=== PATIENT | female | born 1985 | race Two or more races ===

== ENCOUNTER 2022-12-30 12:29 | Emergency (ER) | payer BC, SELFPAY ==
[2022-12-30 13:19] VITALS: BP 118/73; PULSE 67; RESP 16; TEMP 36.3; O2SAT 100; BMI 36.6
--- NOTE | 2022-12-30 16:31 | ED.BACK ---
HPI - Back Pain/Injury General Time Seen by Provider: 16:31 Date Seen: 12/30/22 Chief Complaint: Back Injury/Pain Stated Complaint: Right flank pain Time Seen by Provider: 12/30/22 16:21 Source: patient and RN notes reviewed Mode of arrival: ambulatory Limitations: no limitations History of Present Illness HPI Narrative: This 37-year-old female is coming in with new right-sided back pain and low back pain for about a week. She states there is no inciting event or trauma. She believes she had a lumbar fusion about a year ago, was having pain in the left side and in the left leg at that time. Now she started to have pain that goes into the right buttock, pain will go down into the upper right leg, she will feel both of her feet go numb at times. She states it hurts in her right buttock and low back to sit, hurts to walk. She denies any fevers or chills. Again she cannot remember any trauma or anything that aggravated this. She states it just came out of nowhere. She has tried Tylenol, icy Hot. She states she tries to stay away from ibuprofen as she has a history of NSAID induced ulcers. Her surgeon has a lumbar CT ordered for later this week, states they will not give her any medicines until they have the CT scan. She is coming in here because the pain is becoming worse and not something that she can tolerate. I was able to see the order that was placed, a CT lumbar spine was what was ordered. She has no bowel or bladder dysfunction, has had no incontinence. MD elicited complaint: back pain Related Data Home Medications Medication Instructions Recorded Confirmed bupropion HCl 75 mg tablet 75 mg PO TID 12/30/22 12/30/22 trazodone 50 mg tablet 25 mg PO QHS PRN 12/30/22 12/30/22 Previous Rx's Medication Instructions Recorded cyclobenzaprine 10 mg tablet 10 mg PO TID PRN muscle spasm #15 12/30/22 tabs prednisone 20 mg tablet 20 mg PO BID #10 tabs 12/30/22 Allergies Allergy/AdvReac Type Severity Reaction Status Date / Time Sulfa (Sulfonamide Allergy Severe Rash Verified 12/30/22 13:18 Antibiotics) Review of Systems Narrative: As per HPI. PFSH PFSH Social History Smoking Status: Former smoker How often do you have a drink containing alcohol: never AUDIT-C Alcohol total score: 0 Non-prescribed substance use: denies use Exam Const: Vital Signs, click to edit/add: Vital Signs - 24 hr 12/30/22 13:19 Temperature 97.3 F L Pulse Rate [Pulse Oximeter] 67 Respiratory Rate 16 Blood Pressure [Ri ght Upper Arm] 118/73 Pulse Oximetry 100 Oxygen Delivery Me thod Room Air Nancy is a 37-year-old female standing in the exam room 1 when I go in. Her gait is normal, can toe walk, heel walk, no evidence of any muscular limitations on examination of her lower extremities. She has a midline scar in her lumbar spine, well-healed, no midline tenderness. She does complain of right sciatic notch tenderness when I palpate. Has normal light touch sensation, no lower extremity edema. She has decreased range of motion as far as flexion rotation in her low back due to pain. Documenting provider has reviewed patient's vital signs: yes Course Course ED Course: Will order the lumbar CT, have a disc made for her to take to her specialist. Will give her 30 mg IM Toradol, reviewed that this and said may help her and it is not going to cause ulcer issues. She in I can further discuss pain management and treatment once we have her imaging results back. Reevaluation(s) Time of Reevaluation #1: 18:44 Reevaluation #1: Nancy is seen after her CT has been read. Radiology department is still making a disc for her to take to her surgeon. There is nothing acutely that requires any emergent intervention, overall the CT looks stable. She can take this to her surgeon and they can further evaluate. At this time would recommend course of steroids, will send in a muscle relaxant. As far as pain management I would have her stand Tylenol. Have reviewed with her that I did do not typically use narcotics for back pain, especially when her CT is not showing any overall concerning changes per the radiologist. She can talk to her spine surgeon tomorrow and see if they have any further input, really does need to get this disc to them. Vital Signs Vital signs: Initial Vital Signs Temperature 97.3 F L 12/30/22 13:19 Temperature Source Temporal Artery Scan 12/30/22 13:19 Pulse Rate 67 12/30/22 13:19 Pulse Rhythm Regular 12/30/22 13:19 Pulse Strength 3+ Normal 12/30/22 13:19 Respiratory Rate 16 12/30/22 13:19 Blood Pressure 118/73 12/30/22 13:19 Blood Pressure Mean 88 12/30/22 13:19 Blood Pressure Position Sitting 12/30/22 13:19 Pulse Oximetry 100 12/30/22 13:19 Oxygen Delivery Method Room Air 12/30/22 13:19 Vital Signs Temperature 97.3 F L 12/30/22 13:19 Pulse Rate 67 12/30/22 13:19 Respiratory Rate 16 12/30/22 13:19 Blood Pressure 118/73 12/30/22 13:19 Pulse Oximetry 100 12/30/22 13:19 Oxygen Delivery Method Room Air 12/30/22 13:19 Temperature 97.3 F L 12/30/22 13:19 Pulse Rate 67 12/30/22 13:19 Respiratory Rate 16 12/30/22 13:19 Blood Pressure 118/73 12/30/22 13:19 Pulse Oximetry 100 12/30/22 13:19 Oxygen Delivery Method Room Air 12/30/22 13:19 MDM - Back Pain/Injury Imaging Data CT lumbar spine: Attestation: I have reviewed the pertinent imaging results. Radiologist's impression: Patient: NANCY VALERO Facility:?[facility] Patient ID:?[id number] Site Patient ID:?[id number]. Site :?[id number] Study:?CT Spine Lumbar -12/30/2022 4:56:48 PM Ordering Physician:?Cholo Menjivar Final Report: INDICATION: Low back pain. TECHNIQUE: CT of the lumbar spine without contrast. Coronal and sagittal reformats are included. COMPARISON: None. FINDINGS: Five lumbar type vertebral bodies, with the last fully formed disc space referred to as L5-S1. Postsurgical changes of L5-S1 discectomy with interbody spacer placement. Partial incorporation of bone graft material with the adjacent endplates. An anterior reinforcing plate and screw fixation device without evidence of loosening. Postsurgical changes of L5-S1 dorsal lateral instrumented/bone graft fusion, with no evidence of hardware loosening. The bone graft is not incorporated with the posterior elements completely at this time. No acute fractures or other acute osseous abnormalities. Postop changes posterior paraspinal soft tissues. No retroperitoneal or paraspinal soft tissue mass. Findings at individual levels as follows: Lower thoracic levels, L1-2, L2-3, L3-4: No spinal canal or neural foraminal stenosis. L4-5: Mild disc bulge. No spinal canal or neural foraminal stenosis. L5-S1: Postop changes. No high-grade spinal canal/neural foraminal stenosis SI joints and Sacrum: Bilateral SI joint arthrosis. No sacral abnormalities. IMPRESSION: 1. Postsurgical changes of L5-S1 interbody/dorsal lateral fusion with no complications. Bone graft along the posterior elements is not completely incorporated at this time. 2. No acute fractures or other acute osseous abnormalities. 3. No CT visualized high grade spinal canal/neural foraminal stenosis. Please note that all CT scans at this facility use dose modulation, iterative reconstruction, and/or weight-based dosing when appropriate to reduce radiation dose to as low as reasonably achievable. Dictated by Alfonso Loya MD @ 12/30/2022 5:40:25 PM (Electronic Signature) Critical Care Time Critical Care Time Critical Care Time: No Discharge Plan Discharge Clinical Impression: Acute lumbar back pain Patient Disposition: Home, Self-Care Condition: Stable Instructions: Acute Low Back Pain (ED) Additional Instructions: Start prednisone, take with food. Can continue with Tylenol 1000 mg 3 times a day. Will write for muscle relaxant, do not recommend driving or operating machinery while on this as it can be sedating. Need to get the disc that has the CT of your lumbar spine to your spinal surgeon FITO. Further management to be guided by their recommendations. Activity Level: Activity as Tolerated Prescriptions: New prednisone 20 mg tablet 20 mg PO BID Qty: 10 0RF cyclobenzaprine 10 mg tablet 10 mg PO TID PRN (Reason: muscle spasm) Qty: 15 0RF No Action bupropion HCl 75 mg tablet 75 mg PO TID Rx Instructions: administer 6 hours apart trazodone 50 mg tablet 25 mg PO QHS PRN Follow Up/Referrals: Provider,Not a Local [Primary Care Provider] - Stand Alone Forms: MyHealth Info Instructions
--- NOTE | 2022-12-30 16:37 | CRLHL7_ITS ---
For Patients: As a result of the Cures Act, medical imaging exams and procedure reports are released immediately into your electronic medical record. You may view this report before your referring provider. If you have questions, please contact your health care provider. INDICATION: Low back pain. TECHNIQUE: CT of the lumbar spine without contrast. Coronal and sagittal reformats are included. COMPARISON: None. FINDINGS: Five lumbar type vertebral bodies, with the last fully formed disc space referred to as L5-S1. Postsurgical changes of L5-S1 discectomy with interbody spacer placement. Partial incorporation of bone graft material with the adjacent endplates. An anterior reinforcing plate and screw fixation device without evidence of loosening. Postsurgical changes of L5-S1 dorsal lateral instrumented/bone graft fusion, with no evidence of hardware loosening. The bone graft is not incorporated with the posterior elements completely at this time. No acute fractures or other acute osseous abnormalities. Postop changes posterior paraspinal soft tissues. No retroperitoneal or paraspinal soft tissue mass. Findings at individual levels as follows: Lower thoracic levels, L1-2, L2-3, L3-4: No spinal canal or neural foraminal stenosis. L4-5: Mild disc bulge. No spinal canal or neural foraminal stenosis. L5-S1: Postop changes. No high-grade spinal canal/neural foraminal stenosis SI joints and Sacrum: Bilateral SI joint arthrosis. No sacral abnormalities. IMPRESSION: 1. Postsurgical changes of L5-S1 interbody/dorsal lateral fusion with no complications. Bone graft along the posterior elements is not completely incorporated at this time. 2. No acute fractures or other acute osseous abnormalities. 3. No CT visualized high grade spinal canal/neural foraminal stenosis. Please note that all CT scans at this facility use dose modulation, iterative reconstruction, and/or weight-based dosing when appropriate to reduce radiation dose to as low as reasonably achievable. Dictated by Alfonso Loya MD @ 12/30/2022 5:40:25 PM (Electronically Signed)
[2022-12-30] MEDS: KETOROLAC 30 MG/ML inj IM (16:56)
== END 2022-12-30 18:58 | disposition home or self-care (01) ==
PROVIDERS: Emergency Provider Family Medicine
DX: M54.50 Low back pain, unspecified (principal)
CPT/HCPCS: 72131; 96372; 99283; 99284; J1885

== ENCOUNTER 2023-01-19 14:05 | Outpatient (CLI) | payer BC, SELFPAY ==
--- NOTE | 2023-01-19 14:45 | CRLHL7_ITS ---
For Patients: As a result of the Cures Act, medical imaging exams and procedure reports are released immediately into your electronic medical record. You may view this report before your referring provider. If you have questions, please contact your health care provider. Indication: Arthrodesis status. Technique: Multisequence multiplanar MRI of the lumbar spine without contrast. Comparison: Correlated with CT lumbar spine dated 12/30/2022. Findings: Operative changes of anterior and posterior hardware fusion at L5-S1 with intervertebral disc spacer placement. Normal alignment. Vertebral body heights are maintained. Bone marrow signal intensity is within normal limits.The conus medullaris terminates normally at the L1 level. The cauda equina nerve roots appear within normal limits. The paraspinal soft tissues are unremarkable. Evaluation of the individual levels demonstrates: T12-L1 through L3-L4: No significant spinal canal or neural foraminal stenosis L4-L5: Right paracentral disc extrusion with approximately 14 mm caudal subligamentous migration. Probable abutment of the exiting right L5 nerve root in the lateral recess. No significant neural foraminal stenosis. L5-S1: Postsurgical changes. No significant spinal canal or neural foraminal stenosis. Impression: 1. Operative changes of anterior and posterior hardware fusion at L5-S1 with interbody disc spacer placement. 2. At L4-5, right paracentral disc extrusion with approximately 14 mm caudal subligamentous migration and probable abutment of the exiting right L5 nerve root in the lateral recess. Dictated by Jose J Be MD @ 01/19/2023 4:47:37 PM (Electronically Signed)
== END 2023-01-19 14:06 | disposition home or self-care (01) ==
LOC: MRI 14:08
PROVIDERS: Visit Provider Specialist
DX: Z98.1 Arthrodesis status (principal); M51.26 Other intervertebral disc displacement, lumbar region
CPT/HCPCS: 72148

== ENCOUNTER 2023-08-07 14:43 | Outpatient (CLI) | payer BC, SELFPAY ==
--- NOTE | 2023-08-07 15:00 | CRLHL7_ITS ---
For Patients: As a result of the Cures Act, medical imaging exams and procedure reports are released immediately into your electronic medical record. You may view this report before your referring provider. If you have questions, please contact your health care provider. INDICATION: Low back pain. COMPARISON: 01/19/2023. Technique Sagittal T1, T2, and STIR sequences. Axial T1 and T2 weighted sequences. FINDINGS: Normal vertebral body alignment. No fractures. No vertebral body loss of height. No spondylolisthesis. No ligamentous injury. No suspicious osseous lesions. Normal conus terminates at L1. Stable postop changes diskectomy interbody fusion L5-S1 with posterior fusion hardware. T12-L1 L1-2: No spinal canal or neural foraminal narrowing. L2-3: No spinal canal or neural foraminal narrowing. L3-4: No spinal canal or neural foraminal narrowing. L4-5: Disc degeneration and posterior disc bulge. Flattening of ventral thecal sac and mild narrowing of the spinal canal. No neural foraminal narrowing. L5-S1: Postoperative changes. No narrowing of spinal canal. No impingement of the traversing S1 nerve roots. No neural foraminal narrowing. Normal visualized SI joints. IMPRESSION: 1. Normal alignment. No fractures. 2. Stable postoperative changes diskectomy interbody fusion L5-S1 3. At L4-5, mild narrowing of the spinal canal 4. No spinal canal or neural foraminal narrowing at the remaining levels Dictated by Christiano Be MD @ 08/08/2023 8:42:02 AM (Electronically Signed)
== END 2023-08-07 14:44 | disposition home or self-care (01) ==
PROVIDERS: Visit Provider Specialist
DX: M54.50 Low back pain, unspecified (principal); M51.26 Other intervertebral disc displacement, lumbar region
CPT/HCPCS: 72148

== ENCOUNTER 2024-03-04 19:20 | Emergency (ER) | payer BC, SELFPAY ==
[2024-03-04 19:28] VITALS: BP 108/78; PULSE 81; TEMP 36.6; O2SAT 100; BMI 36.6
--- NOTE | 2024-03-04 19:51 | ED.SKABFB ---
HPI - Skin/Abscess/Foreign Bdy General Date Seen: 03/04/24 Chief complaint: Skin/Abscess/Foreign Body Stated complaint: pimple under rt arm Time Seen by Provider: 03/04/24 19:27 Source: patient Mode of arrival: ambulatory Limitations: no limitations History of Present Illness HPI narrative: Patient is a 38-year-old female presenting to the emergency department for concern of an abscess underneath the right axillary region. She 1st noticed it this morning. States she has had a small pimple like this before and her forearm and leos before and it turned out to be MRSA. She states it started small like this initially both times so she want to get ahead of it if it does require antibiotics. Has not had any associated fevers, chills, fatigue, nausea. States she otherwise feels fine. States it is painful when she pushes or rubs on the area. Related Data Home Medications ?Medication ?Instructions ?Recorded ?Confirmed gabapentin 300 mg capsule 300 mg PO 3XD 09/08/23 09/08/23 meloxicam 15 mg tablet 15 mg PO DAILY 09/08/23 09/08/23 tramadol 50 mg tablet mg PO 03/04/24 Allergies Allergy/AdvReac Type Severity Reaction Status Date / Time Sulfa (Sulfonamide Allergy Severe Rash Verified 03/04/24 19:36 Antibiotics) Review of Systems Narrative: Pertinent systems reviewed and were negative unless stated in HPI PFSH PFSH Social History Smoking Status: Former smoker How often do you have a drink containing alcohol: never AUDIT-C Alcohol total score: 0 Non-prescribed substance use: denies use Exam Narrative: Exam Narrative: Const: Well-nourished, Well-developed, in mild distress Eyes: PERRL, no conjunctival injection, and symmetrical lids HENT: Atraumatic external nose and ears. Moist mucous membranes. MSK:Extremities w/o deformity, Normal Active ROM Skin: Warm, Dry. No rashes or lesions. Pimple about 1 or 2 mm in diameter with no purulent drainage and flat in the right axillary region Neuro: Normal Muscle tone, No focal neurological deficits. Psych: Awake, Alert, & Oriented x3. Appropriate mood and affect. Const: Vital Signs, click to edit/add: Vital Signs - 24 hr 03/04/24 19:28 Temperature 97.9 F Pulse Rate [Pulse Oximeter] 81 Blood Pressure [Ri ght Upper Arm] 108/78 Pulse Oximetry 100 Oxygen Delivery Me thod Room Air Course Vital Signs Vital signs: Initial Vital Signs Temperature 97.9 F 03/04/24 19:28 Temperature Source Temporal Artery Scan 03/04/24 19:28 Pulse Rate 81 03/04/24 19:28 Blood Pressure 108/78 03/04/24 19:28 Blood Pressure Mean 88 03/04/24 19:28 Blood Pressure Position Sitting 03/04/24 19:28 Pulse Oximetry 100 03/04/24 19:28 Oxygen Delivery Method Room Air 03/04/24 19:28 Vital Signs Temperature 97.9 F 03/04/24 19:28 Pulse Rate 81 03/04/24 19:28 Blood Pressure 108/78 03/04/24 19:28 Pulse Oximetry 100 03/04/24 19:28 Oxygen Delivery Method Room Air 03/04/24 19:28 Temperature 97.9 F 03/04/24 19:28 Pulse Rate 81 03/04/24 19:28 Blood Pressure 108/78 03/04/24 19:28 Pulse Oximetry 100 03/04/24 19:28 Oxygen Delivery Method Room Air 03/04/24 19:28 MDM - Skin/Abscess/Foreign Bdy MDM Narrative Medical decision making narrative: Patient is a 38-year-old female presenting for concern of right axillary abscess. Does not feel fluctuant and overall the area of concern is flat and flush with the scan. I did do a bedside ultrasound that did not show any deep abscess or drainable area. It appears to be a simple pimple at this time. Considering that I do not believe is necessary to start her an antibiotics. She is agreeable to this plan Discharge Plan Discharge Clinical Impression: Skin pimple Patient Disposition: Home, Self-Care Condition: Stable Instructions: Abscess (ED) Additional Instructions: If you do start to develop worsening symptoms or if the pimple gets larger return for re-evaluation. Prescriptions: No Action gabapentin 300 mg capsule 300 mg PO 3XD meloxicam 15 mg tablet 15 mg PO DAILY tramadol 50 mg tablet PO Follow Up/Referrals: Provider,Not a Local [Primary Care Provider] - Stand Alone Forms: MyHealth Info Instructions
== END 2024-03-04 20:14 | disposition home or self-care (01) ==
LOC: ED 19:59
PROVIDERS: Emergency Provider Student in an Organized Health Care Education/Training Program
DX: N63.31 Unspecified lump in axillary tail of the right breast (principal)
CPT/HCPCS: 99282

== ENCOUNTER 2024-03-21 07:29 | Emergency (ER) | payer BC, SELFPAY ==
--- OUTSIDE RECORDS SUMMARY | 2024-03-21 07:31 | XMS_ITS | Continuity of Care Document ---
Author Name [facility]IN [email or web address] Address Unknown Organization Unknown Address Unknown Procedures FILTER APPLIED:Only known Procedures with Onset Date within the last 5 years Procedure Date Procedure Provider Additional Inform ation Status MRI LUMBAR SPINE W/O DYE (35928) Completed EMERGENCY DEPT VISIT MOD MDM (91812) Completed CT LUMBAR SPINE W/O DYE (36440) Completed THER/PROPH/DIAG INJ SC/IM (30761) Completed Encounters FILTER APPLIED:Only known Encounters with Admission Date within the last 5 years Encounter Location Admission Discharge Billing Code Biology Laboratory Assistant Ronnell keith [facility]
--- OUTSIDE RECORDS SUMMARY | 2024-03-21 07:31 | XMS_ITS | Clinical Summary ---
Author Organization [facility] Address [place], [place] [address] Care Team Providers Care Group Home Worker Name Role Phone Lio Franklin DO Primary Care Provider [phone] Allergies Active Allergy Reactions Criticality Noted Date Comments Sulfa (Sulfonamide Antibiotics) Rash 04/10 Medications acetaminophen (TYLENOL EXTRA STRGTH) 500 mg tabletIndicatio ns:Muscle pain, lumbar,Chronic left shoulder pain Take 1,000 mg by mouth every 6 hours if needed. Max acetaminophen dose: 4000mg in 24 hrs. 0 1 Active hydrOXYzine HCL (ATARAX) 25 mg tabletIndicatio ns:Palpitations Take 1 Tablet (25 mg) by mouth every 6 hours if needed for Anxiety. 25 Tablet 4 Active gabapentin (NEURONTIN) 300 mg capsule 4 Active meloxicam 15 mg tabletIndicatio ns:Ulnar neuropathy of both upper extremities Take 1 Tablet (15 mg) by mouth once daily. 30 Tablet 4 Active Additional Information Patient not taking.Reported on 03/14/2024 oxyCODONE-aceta minophen (PERCOCET) 5-325 mg per tabletIndicatio ns:Strain of right shoulder, initial encounter Take 1 Tablet by mouth every 6 hours if needed for Pain. Max acetaminophen dose: 4000mg in 24 hrs. 10 Tablet 4 Active traMADoL (ULTRAM) 50 mg tabletIndicatio ns:Subacromial impingement of right shoulder,Subacr omial bursitis of right shoulder joint Take 1 Tablet (50 mg) by mouth at bedtime. 10 Tablet 4 Active amitriptyline (ELAVIL) 25 mg tabletIndicatio ns:Sleep disorder Take 1 Tablet (25 mg) by mouth at bedtime if needed for Sleep. 90 Tablet 3 4 Active FLUoxetine (PROZAC) 20 mg capsuleIndicati ons:Mood disorder (HC) Take 1 Capsule (20 mg) by mouth once daily in the morning. 90 Capsule 3 4 Active fluconazole (DIFLUCAN) 100 mg tabletIndicatio ns:Yeast vaginitis Take 1 Tablet (100 mg) by mouth once daily. 1 Tablet 4 Active Hospital, Clinic, or Other Facility Administered Medication Ordered Dose Route Frequency Start Date End Date Status triamcinolone acetonide (KENALOG) injection 40 mgIndications:Subacromial impingement of right shoulder 40 mg IArtic ONE TIME 03/14/2024 03/14/2024 Ended Active Problems Problem Noted Date Diagnosed Date Subacromial impingement of right shoulder 2023 Subacromial bursitis of right shoulder joint Degenerative disc disease, lumbar 02/07/2022 Overview (02/14/2022): S/p lumbar interbody fusion L5-S1 with Dr. Tapia at [facility] (02/2022) Hemorrhoids, internal 04/18/2021 Overview (04/18/2021): 7 o'clock position. Controlled substance agreement signed 01/12/2020 Overview (01/12/2020): Reviewed and resigned at [facility] 01/12/2020 Ulnar neuropathy of left upper extremity 019 Herniated nucleus pulposus, L5-S1 02/22/2018 Overview (02/14/2022): S/p lumbar interbody fusion L5-S1 with Dr. Tapia at [facility] (02/2022) Sacroiliac joint pain 01/14/2018 Nonintractable migraine 05/06/2017 Muscle pain, lumbar 02/09/2017 Overview (05/06/2017): Trial completed (from [facility]): cyclobenzaprine, meloxicam, [place], methocarbamol, oxaprozin, tarmadol, Seen by Pain clinic in [place] before (no GERBER obtained yet). Mention of previous back steroid injections in records from [place]. - Seen by Red Campos MD ([facility]; 01/22/2016): Summary of MRI report of lumbar spine dated 11/07/15 shows at L5-S1, a 3-4 mm posterior central disc protrusion, possibly extrusion with mild indentation along the ventral aspect of the thecal sac and to a lesser extent upon the S1 nerve root. At that time, a L5-S1 lumbar epidural steroid injection was recommended. - Seen by Gume Funez MD ([facility]; 12/06/2015): Recommended to continue with nonoperative treatment and pain management. 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 07/2015 Cold knife cone biopsy Colposcopy in 2017. 05/2016 She had the hysterectomy May 2016 in [place] for cervical cancer, recalls CIN3. 06/2017 NIL/HPV Negative 02/2020 NIL 10/2021 NIL/HPV Negative 05/2023 NIL/HPV Negative Provider Plan: Pap and HPV due 05/2026. Continue HPV-based testing @ 3 year intervals for x 25 years. MRSA infection 03/09/2016 Depression Overview (05/06/2017): Trials: duloxetine 60mg (02/2016), Citalopram 40mg (06/2015), fluoxetine (d/c 06/2015), Resolved Problems Problem Noted Date Diagnosed Date Resolved Date Calculus of gallbladder with out cholecystitis without obstruction 03/30/2018 09/13/2018 Overview (03/30/2018): Noted 02/19/18 ([facility]). Many small stones that fill the gallbladder noted. Helicobacter positive gastritis 03/17/2018 05/10/2018 Overview (03/17/2018): 03-08-18 EGD. [facility]. Treated the H pylori. Celiac labs ordered for follow up. Costochondritis 06/02/2017 03/30/2018 Sacroiliac joint pain 02/09/20172017 Encounters Date Type Department Care Team Description 03/18/2024 Travel 03/14/2024 1:00 PM WASHROOM CLEANER Office Visit [facility] [address] [facility] [address] [place] [address] Babak Mendoza MD Follow Up (f/u right shoulder pain) 03/14/2024 Travel 03/13/2024 Travel 02/21/2024 Travel 12/31/2023 4:10 PM CDT Office Visit [facility] [address] [place] [address] Lio Franklin, DO Multiple Problems 12/31/2023 Travel 12/31/2023 Orders Only [facility] [address] [place] [address] Lio Franklin, DO <No scans attached> from Last 3 Months Immunizations Name Administration Dates Next Due Influenza, IIV4 02/06/2023,03/29/2018,02/05/2017 Tdap 03/29/2018 Family History Medical History Relation Name Comments No Known Problems Father Other Mother Colon Problems requiring colonoscopies Cancer Sister Diabetes Sister Other Sister Colon Problems requiring colonoscopies Cancer-breast No Family History Crohn's disease No Family History Ulcerative colitis No Family History Relation Name Status Comments Father Alive Mother Alive Sister Social History Tobacco Use Types Packs/Day Years Used Date Smoking Tobacco: Former Cigarettes 0.3 20.2 2 000 - 05/11/2019 Smokeless Tobacco: Never Tobacco Cessation:Counseling Given: Yes Comments:1 pack lasts a week or two Alcohol Use Standard Drinks/Week Comments Not Currently 0 (1 standard drink = 0.6 oz pur e alcohol) [facility] Utilities Answer Date Recorded Do you have trouble paying f or utilities (for example, heat, electricity, water, phone)? Yes 11/09/2023 PHQ-2 Answer Date Recorded PHQ-2 TOTAL SCORE 4 08/15/2022 Social Connections Answer Date Recorded Do you often feel lonely or isolated from those around you? 0 11/09/2023 Financial Resource Strain Answer Date R ecorded Difficulty of Paying Living Expenses 3 11/09/2023 Difficulty of Paying Living Expenses Not on file 11/09/2023 Food Insecurity Answer Date Recorded Do you worry your food will run out before you are able to buy more? 1 11/09/2023 Transportation Needs Answer Date Record ed Does lack of transportation keep you from medica l appointments? 1 11/09/2023 Does lack of transportation keep you from work, meetings or getting things that you need? 1 11/09/2023 Housing Stability Answer Date Recorded What is your housing situation today? 1 11/09/2023 Comments No Sex and Gender Information Value Date Recorded Sex Assigned at Not on file Legal Sex Female 8:36 AM WASHROOM CLEANER Gender Identity Not on file Sexual Orientation Not on file Obstetrics History Last Filed Vital Signs Vital Sign Reading Time Taken Comments Blood Pressure 107/67 12/31/2023 4:54 PM CDT Pulse 80 12/31/2023 4:54 PM CDT Temperature 37 C (98.6 F) 11/10/2023 9:09 AM CDT Respiratory Rate 20 02/10/2022 7:50 AM WASHROOM CLEANER Oxygen Saturation 100% 12/31/2023 4:54 PM CDT Inhaled Oxygen Concentration - - Weight 95.2 kg (209 lb 12.8 oz) 11/10/2023 9:09 AM CDT Height 156.2 cm (5' 1.5) 02/06/2023 11 :36 AM WASHROOM CLEANER Body Mass Index 39 02/06/2023 11:36 AM WASHROOM CLEANER Plan of Treatment Upcoming Encounters Date Type Department Care Team (Late st Contact Info) Description 03/31/2024 3:45 PM WASHROOM CLEANER Office Visit [facility] [address] [place] [address] Lio Franklin DO [address] [place] [address] Health Maintenance Due Date Last Done Comments Depression screening for age 12+ 08/16/2023 08/15/2022, 09/19/2021, 02/10/2020, Additional history exists COVID-19 vaccine series (2023- season) 2023 Influenza for age 9-49 11/08/2023 3, 03/29/2018, 02/05/2017 BMI (ht and wt on same day) for age 18+ 02/07/2024 02/06/2023, 12/02/2022, 09/24/2022, Additional history exists Pap test for age 21-65 05/12/2026 4, 05/13/2023, 10/10/2021, Additional history exists Tetanus booster 03/29/2028 03/29/2018 Tdap Completed 03/29/2018 HIV for age 15-65 Completed 10/10/2021, 02/08/2020 Hepatitis C screening for age 18-79 Completed 10/10/2021 Pneumococcal series for age 6-49 Aged Out No longer eligible based on patient's age to complete this topic Medical Devices Implanted Type Area Ring Barker Operator Device Identifier Shelf Expiration Date Model / Serial / Lot Set Screw Lmbr Ant 5.5mm Solera Break Off - [id number] Implanted:Qty: 4 on 02/07/2022 by Hal Tapia MD at [facility] N/A: Spine Medtronic Spine/Ortho [id number] / / Benjamín Lmbr 45x5.5mm Solera 5.5/6 [facility] Titnm - [id number] Implanted:Qty: 2 on 02/07/2022 by Hal Tapia MD at [facility] N/A: Spine Medtronic Spine/Ortho [id number] / / Screw Lmbr Post 6.5x40mm Solera 5.5/6 Va [facility] - [id number] Implanted:Qty: 2 on 02/07/2022 by Hal Tapia MD at [facility] N/A: Spine Medtronic Spine/Ortho [id number] / / Screw Lmbr Post 6.5x45mm Solera 5.5/6 Va Cocr - [id number] Implanted:Qty: 2 on 02/07/2022 by Hal Tapia MD at [facility] N/A: Spine Medtronic Spine/Ortho [id number] / / Screw Lmbr 5.5x25mm Endo Skeleton Tas Bone Alif Stand Alone - [id number] Implanted:Qty: 3 on 02/07/2022 by Hal Tapia MD at [facility] N/A: Spine Medtronic Spine/Ortho [id number] / / Jeremiah Spacer Tas 7dg Std 12mm Implanted:Qty: 1 on 02/07/2022 by Hal Tapia MD at [facility] N/A: Spine 01/14/2026 [id number] / / [id number] Description:JEREMIAH SPACER TAS 7DG STD 12MM [id number] one Matrix 6cc Capron Dbf Putty Dbm Implanted:Qty: 1 on 02/07/2022 by Hal Tapia MD at [facility] Explanted:at [facility] (Quantity not on file) N/A: Spine Medtronic Spine/Ortho 12/31/2023 [id number] / [id number] / Bone 1-4mm 30cc Medtronic Chips Canclls Freeze Dried - [id number] Implanted:Qty: 1 on 02/07/2022 by Hal Tapia MD at [facility] Explanted:at [facility] (Quantity not on file) N/A: Spine Medtronic Spine/Ortho 12/17/2025 [id number] / [id number] / Bone 1-4mm 30cc Medtronic Chips Canclls Freeze Dried - [id number] Implanted:Qty: 1 on 02/07/2022 by Hal Tapia MD at [facility] Explanted:at [facility] (Quantity not on file) N/A: Spine Medtronic Spine/Ortho 12/16/2025 [id number] / [id number] / Procedures Procedure Name Priority Date/Time Associated Diagnosis Comments TRICHOMONAS, SREEDHAR, AND BACTERIAL VAGINOSIS BY JES Routine 12/31/2023 5:08 PM CDT Vaginal discharge HPV HIGH RISK Routine 05/13/2023 8:50 AM WASHROOM CLEANER Screening for cervical cancer ANTI HIV 1/2 Routine 10/10/2021 12:29 PM CDT Screening examination for STD (sexually transmitted disease) ANTI HCV Routine 10/10/2021 12:29 PM CDT Screening examination for STD (sexually transmitted disease) from Last 3 Months or Most Recently Relevant to Health Maintenance Results * (ABNORMAL) TRICHOMONAS, SREEDHAR, AND BACTERIAL VAGINOSIS BY JES (12/31/2023 5:08 PM CDT) SREEDHAR SPECIES Positive(A) Negative 01/01/20 2:59 AM CDT [facility] SREEDHAR GLABRATA Negative Negative 01/01/2024 2:59 AM CDT [facility] TRICHOMONAS VVA Negative Negative 2:59 AM CDT [facility] BACTERIAL VAGINOSIS Negative Negative 01/01/2024 2:59 AM CDT [facility] Other VAGINAL SWAB / Unknown Non-Blood / Unknown 12/31/2023 5:08 PM CDT 12/31/2023 5:08 PM CDT us Lio Franklin DO MICROBIOLOGY Final Result [facility] [address] [place] [address], * HPV HIGH RISK (05/13/2023 8:50 AM WASHROOM CLEANER) TYPE 16 Negative Negative 05/16/2023 2:54 PM WASHROOM CLEANER [facility] TYPE 18 Negative Negative 05/16/2023 2:54 PM WASHROOM CLEANER [facility] OTHER HIGH RISK TYPES Negative Negative 05/16/2023 2:54 PM WASHROOM CLEANER [facility] Other (Cervical) Non-Blood / Unknown 05/13/2023 8:50 AM WASHROOM CLEANER 05/13/2023 4:26 PM WASHROOM CLEANER Narrative [facility] - 05/16/2023 2:54 PM WASHROOM CLEANER HPV types 16, 18, 31, 33, 35, 39, 45, 51, 52, 56, 58, 59, 66 and 68 DNA were undetectable or below the pre-set threshold. Methodology: Ivonne Monty 4800 HPV Test Gale Chamberlain DO MICROBIOLOGY Final Resu lt Performing Organization Address City/[facility]/ZIP Co de Phone Number [facility] [address] [place] [address], * ANTI HCV (10/10/2021 12:29 PM CDT) Pathologist [facility] HEPATITIS C ANTIBODY Non-React carolina Non-React carolina 10/12/2021 4:21 AM CDT [facility] Comment:Antibodies to HCV no t detected; does not exclude the possibility of exposure to HCV. Blood BLOOD SPECIMEN / Unknown Venipuncture / Unknown 10/10/2021 12:29 PM CDT 10/10/2021 12:29 PM CDT Zach Benitez MD SEND OUTS Final Result Performing Organization Address [facility] Co de Phone Number [facility] [address] [place] [address], * ANTI HIV 1/2 (10/10/2021 12:29 PM CDT) Pathologist [facility] HIV-1/HIV-2 ANTIBODY Non-Reacti ve Non-Reacti ve 10/12/2021 4:19 AM CDT [facility] Comment:HIV-1 p24 and HIV-1/ HIV-2 Ab not detected. Blood BLOOD SPECIMEN / Unknown Venipuncture / Unknown 10/10/2021 12:29 PM CDT 10/10/2021 12:29 PM CDT Zach Benitez MD SEND OUTS Final Result Performing Organization Address City/[facility] Co de Phone Number [facility] [address] [place] [address], from Last 3 Months or Most Recently Relevant to Health Maintenance Additional Health Concerns Infection Onset Date Last Indicated MRSA Clearance Comment:Infection Control Note: Hx of MRSA, surveillance criteria met, no need for further testing or isolation precautions. Do not delete or resolve the infection flag. 06/07/2018 06/07/2018 [facility] Advance Directives * Full Code (Latest Code Status on File) Date Activated Date Inactivated Comments 02/07/2022 8:47 PM 02/10/2022 1:46 PM Question Answer Comments Code Status Discussion: Reviewed Preferences * Full Code Date Activated Date Inactivated Comments 06/07/2018 6:05 AM 06/07/2018 1:19 PM Care Teams Group Home Worker Relationship Specialty Start Date End Date Lio [place] [address] PCP - General Family Practice 09/04/23
[2024-03-21 07:32] VITALS: BP 110/75; PULSE 91; RESP 16; TEMP 35.9; O2SAT 96; BMI 37.8
[2024-03-21 08:23] LABS: PCR FLU A Negative PCR FLU A (Negative); PCR FLU B Negative PCR FLU B (Negative); PCR RSV Negative PCR RSV (Negative); SARS PCR* Negative SARS-CoV-2 (Negative)
--- NOTE | 2024-03-21 08:23 | ED.NAVMDI ---
HPI - Nausea/Vomiting/Diarrhea General Date Seen: 03/21/24 Chief complaint: Diarrhea Stated complaint: Diarrhea Time Seen by Provider: 03/21/24 08:03 Source: patient Mode of arrival: ambulatory Limitations: no limitations History of Present Illness HPI Narrative: Patient is a 38-year-old female presenting to the emergency department for flu-like symptoms. She states starting yesterday morning's been having headache, body aches, vomiting diarrhea. States the headache is a dull ache in her forehead with some photophobia. States her vision this morning seemed blurry when she woke up but has been normal since than. Has had headaches like this before when she was . Also states her low back hurts. Pain does not radiate down her legs. Denies saddle anesthesia. Denies urinary retention, incontinence, bowel incontinence. States she has had constant diarrhea since she woke up yesterday morning. Describes as watery with no blood in it. She has also not noticed any hematemesis. States she has lost track of how much diarrhea and vomiting she has done. Is not aware for new 1 was been sick around her. He has had chills but has not had any objective fevers at home. Has felt fatigued. Denies weakness, numbness, chest pain, shortness of breath, abdominal pain. Related Data Home Medications ?Medication ?Instructions ?Recorded ?Confirmed gabapentin 300 mg capsule 300 mg PO 3XD 09/08/23 09/08/23 meloxicam 15 mg tablet 15 mg PO DAILY 09/08/23 09/08/23 tramadol 50 mg tablet mg PO 03/04/24 amitriptyline 10 mg tablet 10 mg PO QPM 03/21/24 03/21/24 Previous Rx's ?Medication ?Instructions ?Recorded ondansetron 4 mg disintegrating 4 mg PO Q6H #20 tabs 03/21/24 tablet Allergies Allergy/AdvReac Type Severity Reaction Status Date / Time Sulfa (Sulfonamide Allergy Severe Rash Verified 03/04/24 19:36 Antibiotics) Review of Systems Status of ROS: Reports: 10 or more systems reviewed and unremarkable except as noted in History and below PFSH PFS Social History Smoking Status: Former smoker How often do you have a drink containing alcohol: never AUDIT-C Alcohol total score: 0 Non-prescribed substance use: denies use service: No Exam Narrative: Exam Narrative: Const: Well-nourished, Well-developed, in mild distress Eyes: PERRL, no conjunctival injection, and symmetrical lids HENT: Atraumatic external nose and ears. Moist mucous membranes. Neck: Symmetric, trachea midline, No thyromegaly. CVS: RRR, No murmurs or gallops. Peripheral pulses 2+ and equal in all extremities RESP: Unlabored respiratory effort. Clear to auscultation bilaterally. GI: Nontender/Nondistended, No rebound or guarding. MSK:Extremities w/o deformity, Normal Active ROM Skin: Warm, Dry. No rashes or lesions. Neuro: Normal Muscle tone, No focal neurological deficits. Psych: Awake, Alert, & Oriented x3. Appropriate mood and affect. Const: Vital Signs, click to edit/add: Vital Signs - 24 hr 03/21/24 07:32 Temperature 96.6 F L Pulse Rate [Pulse Oximeter] 91 Respiratory Rate 16 Blood Pressure [Ri ght Upper Arm] 110/75 Pulse Oximetry 96 Oxygen Delivery Me thod Room Air Course Vital Signs Vital signs: Initial Vital Signs Temperature 96.6 F L 03/21/24 07:32 Temperature Source Temporal Artery Scan 03/21/24 07:32 Pulse Rate 91 03/21/24 07:32 Respiratory Rate 16 03/21/24 07:32 Blood Pressure 110/75 03/21/24 07:32 Blood Pressure Mean 86 03/21/24 07:32 Blood Pressure Position Sitting 03/21/24 07:32 Pulse Oximetry 96 03/21/24 07:32 Oxygen Delivery Method Room Air 03/21/24 07:32 Vital Signs Temperature 96.6 F L 03/21/24 07:32 Pulse Rate 91 03/21/24 07:32 Respiratory Rate 16 03/21/24 07:32 Blood Pressure 110/75 03/21/24 07:32 Pulse Oximetry 96 03/21/24 07:32 Oxygen Delivery Method Room Air 03/21/24 07:32 Temperature 96.6 F L 03/21/24 07:32 Pulse Rate 91 03/21/24 07:32 Respiratory Rate 16 03/21/24 07:32 Blood Pressure 110/75 03/21/24 07:32 Pulse Oximetry 96 03/21/24 07:32 Oxygen Delivery Method Room Air 03/21/24 07:32 Medications Administered Medications: Discontinued Medications Generic Name Dose Route Start Last Admin Trade Name Isael PRN Reason Stop Dose Admin Diphenhydramine HCl 25 mg 03/21/24 08:22 03/21/24 08:41 Diphenhydramine 50 Mg/Ml Inj IVP 03/21/24 08:23 25 mg ONCE ONE Administration Sodium Chloride 1,000 mls @ 1,000 mls/hr 03/21/24 08:30 03/21/24 09:56 0.9 % Sodium Chloride 1000 Ml IV 03/21/24 09:29 Infused .Q1H CHON Infusion Metoclopramide HCl 10 mg 03/21/24 08:22 03/21/24 08:41 Metoclopramide Hcl 5 Mg/Ml Inj IVP 03/21/24 08:23 10 mg ONCE ONE Administration MDM - Nausea/Vomiting/Diarrhea MDM Narrative Medical decision making narrative: patient is a 38-year-old female presenting to emergency department for in sounds like flu-like symptoms. Is not having any abdominal pain so do not believe abdominal imaging is necessary. Is not having any chest pain or shortness of breath So ACS, pneumonia or other intrathoracic abnormalities are unlikely. She is having headache but describes as more of a dull ache in similar to headache she has had in the past. Meningitis or intracranial abnormality seems unlikely. Will do a CBC and BMP to look for other abnormality such as electrolyte changes due to her likely dehydration. Viral swabs ordered. Will give her a migraine cocktail including Reglan, Benadryl, L of fluids. At this time I believe her headache is likely from dehydration as she has not been eating or drinking much lately Along with the diarrhea and vomiting. Lab work shows no concerning findings. She is feeling much better after medication. Symptoms are all likely from dehydration and some viral syndrome that we will not test for. I believe she is safe for discharge. She is agreeable to this plan. Will prescribe her Zofran. Lab Data Labs: Lab Results 03/21/24 03/21/24 Range/Units 07:40 08:48 WBC 5.42 (4.50-11.00) K/uL RBC 4.81 (4.00-5.20) m/uL Hgb 13.9 (12.0-16.0) gm/dL Hct 41.2 (33.0-51.0) % MCV 86 (80-100) fL MCH 29 (26-34) pg MCHC 34 (32-36) gm/dL RDW Coeff of Valarie 12.7 (11.5-15.5) % Plt Count 301 (140-440) K/uL Neut % (Auto) 71.4 (42.0-72.0) % Lymph % (Auto) 11.4 L (20-44) % Atlantic % (Auto) 15.3 H (0.0-11.0) % Eos % (Auto) 1.5 (0.0-7.0) % Baso % (Auto) 0.2 (0.0-3.0) % Neut # (Auto) 3.87 (1.7-7.0) K/uL Lymph # (Auto) 0.60 L (0.90-2.90) K/uL Atlantic # (Auto) 0.80 (0.00-0.90) K/UL Eos # (Auto) 0.08 (0.00-0.50) K/uL Baso # (Auto) 0.01 (0.00-0.30) K/uL Abs Immat Gran (auto) 0.01 (0.00-0.30) K/uL Imm/Tot Granulo (auto) 0.2 % Sodium 134 L (135-149) mmol/L Potassium 3.3 L (3.6-5.1) mmol/L Chloride 102 (96-114) mmol/L Carbon Dioxide 24 (20-32) mmol/L Anion Gap 8 (7-15) mEq/L BUN 8 (5-24) mg/dL Creatinine 0.5 (0.5-1.5) mg/dL Estimated Creat Clear 113.99 Estimated GFR 122 ml/min Glucose 101 (60-115) mg/dL Calcium 8.8 (8.4-10.6) mg/dL SARS-CoV-2 (PCR) Negative SARS-CoV-2 (Negative) Influenza Type A (PCR) Negative PCR FLU A (Negative) Influenza Type B (PCR) Negative PCR FLU B (Negative) RSV (PCR) Negative PCR RSV (Negative) Discharge Plan Discharge Clinical Impression: Acute viral syndrome Patient Disposition: Home, Self-Care Condition: Stable Instructions: Viral Syndrome (ED) Additional Instructions: Take the Zofran as needed for nausea. Return to emergency department for new or worsening symptoms. Make sure to stay well hydrated. Prescriptions: New ondansetron 4 mg tablet,disintegrating 4 mg PO Q6H Qty: 20 0RF No Action gabapentin 300 mg capsule 300 mg PO 3XD meloxicam 15 mg tablet 15 mg PO DAILY tramadol 50 mg tablet PO amitriptyline 10 mg tablet 10 mg PO QPM Follow Up/Referrals: Provider,Not a Local [Primary Care Provider] - Stand Alone Forms: [employer] Info Instructions
[2024-03-21] MEDS: METOCLOPRAMIDE HCL 5 MG/ML INJ 10 MG IVP (08:41)
[2024-03-21] MEDS: diphenhydrAMINE 50 MG/ML inj 25 MG IVP (08:41)
[2024-03-21] MEDS: 0.9 % SODIUM CHLORIDE 1000 ml 1,000 ML IV (08:42)
[2024-03-21 09:00] LABS: Basophils Absolute Auto 0.01 K/uL (0.00-0.30); Basophils Percent Auto 0.2 % (0.0-3.0); Eosinophils Absolute Auto 0.08 K/uL (0.00-0.50); Eosinophils Percent Auto 1.5 % (0.0-7.0); Hematocrit 41.2 % (33.0-51.0); Hemoglobin* 13.9 gm/dL (12.0-16.0); Immature Granulocytes Abs Auto 0.01 K/uL (0.00-0.30); Immature Granulocytes Pct Auto 0.2 %; Lymphocytes Percent Auto 11.4 % (20-44); Mean Corpuscular HGB Conc 34 gm/dL (32-36); Mean Corpuscular Hemoglobin 29 pg (26-34); Mean Corpuscular Volume 86 fL (80-100); Monocytes Percent Auto 15.3 % (0.0-11.0); Neutrophils Absolute Auto 3.87 K/uL (1.7-7.0); Neutrophils Percent Auto 71.4 % (42.0-72.0); Platelet Count* 301 K/uL (140-440); RDW Coefficient of Variation % 12.7 % (11.5-15.5); Red Blood Count 4.81 m/uL (4.00-5.20); White Blood Count* 5.42 K/uL (4.50-11.00)
[2024-03-21 09:09] LABS: Chloride* 102 mmol/L (96-114)
[2024-03-21 09:10] LABS: Potassium* 3.3 mmol/L (3.6-5.1); Sodium* 134 mmol/L (135-149)
[2024-03-21 09:12] LABS: Creatinine* 0.5 mg/dL (0.5-1.5); Est. Creatinine Clearance* 113.99; Estimated Glomerular Filt Rate 122 ml/min
[2024-03-21 09:13] LABS: Anion Gap 8 mEq/L (7-15); Blood Urea Nitrogen* 8 mg/dL (5-24); Calcium* 8.8 mg/dL (8.4-10.6); Carbon Dioxide* 24 mmol/L (20-32); Glucose* 101 mg/dL (60-115); Slide Review Reflex No
== END 2024-03-21 10:39 | disposition home or self-care (01) ==
PROVIDERS: Emergency Provider Student in an Organized Health Care Education/Training Program
DX: B34.9 Viral infection, unspecified (principal)
CPT/HCPCS: 36415; 80048; 85025; 87631; 96374; 96375; 99283; 99284; J1200; J2765; J7030

== ENCOUNTER 2025-01-31 19:11 | Emergency (ER) | payer SELFPAY ==
--- OUTSIDE RECORDS SUMMARY | 2025-01-31 19:14 | XMS_ITS | Data Portability ---
Author Organization [place] [facility], [facility] Address [address] [place] [address] Assessment Encounter Date Assessment Date Assessment LastModified by Organization Details LastModified Time 04/27/2024 04/27/2024 39 yo F with 1. Mixed urge predominant incontinence with satisfactory emptying 2. Urinary tract infectious disease UA dipstick not concerning for infection cath PVR 50cc Plan: - Behavioral therapies were discussed including timed voiding, double voiding, limiting bladder irritants and limiting fluids in the evenings - Prescribed vaginal estrogen cream (daily for 2 weeks, then 2-3 times weekly) - Referral to Pelvic floor physical therapy Counseled on: - Fluid management: limit evening fluid intake after 6 PM - UTI prevention strategies including increased water intake, D-Mannose, cranberry supplements - Vaginal estrogen use and safety - Follow up in 3 months Not available 05/03/2024 16:40:37 Plan of Treatment Reminders Order Date Submit Date Provider Last Modified By Organization Details Last Modified Time Details Appointments None recorded. Lab None recorded. Referral pelvic floor therapy referral - Please contact patient to schedule 2024 025 SVETLANA Martin Scheduling, [address] [place], [address], 09:01:10 Procedures None recorded. Surgeries None recorded. Imaging None recorded. Medication Orders estradiol 0.01% (0.1 mg/gram) vaginal cream 2024 025 [id number], [address] [place], [place], [phone], 5 12:24:47 Patient TargetsNo targets recorded. Patient Instructions Encounter Date Encounter Id Patient Instructions Last Modified By Organization Details Last Modified Time 04/27/2024 [id number] Patient Summary - Overactive Bladder - Frequent urination (every 45 minutes) - Urge incontinence with activity - Starting pelvic floor physical therapy - Recurrent UTIs - Two episodes in past 3 months - Starting vaginal estrogen - Counseled on prevention strategies Jiménez Takeaways - Start vaginal estrogen cream daily for 2 weeks, then 2-3 times weekly - Schedule pelvic floor physical therapy - Limit fluid intake after 6 PM Next Steps - Schedule pelvic floor physical therapy at recommended facility - Follow up appointment in 3 months - Return sooner if symptoms worsen Not available 04/27/2024 12:24:46 Reason for Referral Pelvic Floor Therapy Referra l for Overactive urinary bladder Please contact patient to schedule Referring Physician: Lluvia Samson, Urology, Encounter Date: 04/27/2024 Problems Name Problem SNOMED Code Status Onset Date Resolution Date Notes Provider Name and Address Organization Details Recorded Time Urgent desire to urinate 50862086 Active 2024 Khushbu hyatt [facility] 5 10:31:40 Incontinence 02618642 Active 2024 Khushbu hyatt [facility] 5 10:31:40 Mixed urinary incontinence 108242701 Active 2024 Khushbu hyatt [facility] 5 10:31:40 Urinary incontinence 788863033 Active 2024 Khushbu hyatt [facility] 5 10:31:40 Increased frequency of urination 425930589 Active 2024 Khushbu hyatt [facility] 5 10:31:40 Overactive urinary bladder 787800003 Active 2024 Khushbu hyatt [facility] 5 10:31:40 Recurrent urinary tract infection 395500869 Active 2024 LLUVIA SAMSON MD [address] [place] [address], [phone] [place] [address] Urology 12:19:26 Problem Notes None recorded. Procedures Surgical History Date Name Laterality Status Provider Name and Address Organization Details Recorded Time 07/28/19 25 Bladder Scan cancelled Tisha Muhammad [facility] 07/18/2024 15:00:35 04/27/19 25 Bladder Scan completed Sarah Kenny [facility] 04/27/2024 11:44:05 04/27/19 25 In and Out Catheterization- female completed LLUVIA SAMSON MD [address] [facility],[address], [place], [address], [facility] 04/27/2024 14:10:21 03/09/19 17 hysterectomy completed Khushbu Dunn [facility] 04/26/2024 10:30:02 Imaging Results None recorded. Procedure Notes None recorded. Medical Equipment None Reported. Allergies Allergen ID Allergen Name Allergen Category Reaction Reaction Severity Criticality Documentation Date Start Date Code Code System Note Provider Name and Address Organization Details Recorded Time 506398 Substance with sulfonami de structure and antibacte rial mechanism of action (substanc e) medicatio n Not available Not available Not available 04/27/2024 [id number] SNOMED Sarah Cox null, [facility] 11:34:35 Medications Name Sig Start Date Stop Date Status Note LastModified by Organization Details LastModified Time fluconazole 100 mg tablet TAKE 1 TABLET BY MOUTH EVERY DAY 04/27 completed Not Available Not Available Not Available tizanidine 2 mg tablet active Not Available Not Available Not Available aspirin 81 mg tablet,akilah yed release TAKE 1 TABLET BY MOUTH TWO TIMES DAILY WITH MEALS FOR 14 DAYS active Not Available Not Available No t Available tramadol 50 mg tablet active Not Available Not Available No t Available oxycodone-a cetaminophe n 5 mg-325 mg tablet active Not Available Not Available No t Available amitriptyli ne 25 mg tablet active Not Available Not Available Not Available gabapentin 300 mg capsule active Not Available Not Available Not Available estradiol 0.01% (0.1 mg/gram) vaginal cream INSERT 0.5 GRAM VAGINALLY 3 TIMES A WEEK active Not Available Not Available No t Available methylpredn isolone 4 mg tablets in a dose pack FOLLOW PACKAGE DIRECTION S active Not Available Not Available No t Available ketoconazol e 2 % topical cream APPLY TOPICALLY TO THE AFFECTED AREA TWICE DAILY active Not Available Not Available No t Available ondansetron 4 mg disintegrat ing tablet DISSOLVE 1 TABLET ON THE TONGUE EVERY 6 HOURS active Not Available Not Available No t Available nitrofurant oin monohydrate /macrocryst als 100 mg capsule active Not Available Not Available Not Available Vitals Date Recorded Body height Body mass index (BMI) Body weight Provider Name and Address Organization Details Last Updated DateTime 04/27/2024 157.48 cm 40.2 kg/m2 97937.32 g Sarah Cox [facility] 04/27/2024 11:33:50 Social History Question Answer Notes LastModified by [employer] Details LastModified Time Tobacco Smoking Status Never Smoker YURIDIA [facility] 04/27/2024 11:39:07 What Is Your Level Of Caffeine Consumption? Occasional [email or web address] Information not available 04/27/2024 What Was The Date Of Your Most Recent Tobacco Screening? 04/27/2024 [email or web address] Information not available 04/27/2024 Sex: Unknown Functional Status Question Answer Note LastModified by [employer] Details LastModified Time What is your level of alcohol consumption? Occasional [email or web address] Information not available 04/27/2024 Mental Status None recorded. Family History Relationship Description Onset Age of this Age Resolved Age Notes LastModified by Organization Details LastModified Time Sister History of malignant neoplasm of liver [email or web address] Not available 11:38:05 Mother History of partial pancreatecto my [email or web address] Not available 11:38:45 Medical History No medical history recorded. Gynecological HistoryNo gynecological history recorded. Obstetrics History GPAL:G 0 P 0 0 0 0 Immunizations Vaccine Type Date Status Note Provider Nam e and Address Organization Details Recorded Time Influenza, split virus, quadrivalent, PF 02/06/2023 completed YURIDIA [facility] 04/27/2024 11:25:58 Past Encounters Encounter ID Performer Location Encounter Start Date Encounter Closed Date Diagnosis/Indication Diagnosis SNOMED-CT Code Diagnosis ICD10 Code Diagnosis IMO Codes Diagnosis Note [id number] LLUVIA SAMSON MD [facility] [address] [place] [phone] 04/27/2024 11:22:42 05/05/2024 11:21:55 Recurrent urinary tract infection 684827130 N39.0 Overactive urinary bladder 399775870 N32.81 Mixed urin lasha incontinence 228425541 N39.46 Health Concerns Section Related Observation LastModified by Organization Detai ls LastModified Time None Recorded Concern Status LastModified by Organization Details LastModified Time None Recorded Advance Directives Directive None Recorded Payers Insurance Date Sequence Insurance Name Policy Number Policy Cervantes Covered Member ID Cervantes Member ID Guarantor Name 07/25/2024 1 [id number] - [place]MO) [id number] Jessie Steele [id number] Jessie Fowlero Notes Date Note Type Note Provider Name and Address Organization Details Recorded Time 04/27/2024 text/html ROS as noted in the HPI Patient is a 39 year old female with presents for evaluation of nocturia and incontinence. Referred by: Dr. Vaughn from [facility] Records reviewed and in summary: Seen on 03/31/[address] Franklin for limb swelling. On elavil 25mg for insomnia.No UTI data. History:- Reports urinary incontinence with jumping, coughing, laughing- Also reports Urinary urgency with leakage when unable to reach bathroom in time- Frequency: every 45 minutes- Nocturia: twice per night with sleep medication- Daily urge incontinence episodes, especially when bathroom occupied or while driving- No nocturnal enuresis- No pads used- Recent UTIs: two episodes in past 3 months, treated with antibiotics- No hematuria- Reports pelvic pain with menses- Irregular bowel movements every 1-2 days- Dyspareunia occasionally- Post-coital urination LUTSF: every 45 minutesU: yes oftenN: 2xNE: noUI: yes dailyPads: noUTI: yes, a couple months agoPain: no Past Medical History:- Cervical cancer- Kidney stones- Depression- Sleep issues requiring medication Past Surgical History:- Hysterectomy (04/2016) for cervical cancer- Appendectomy- L4-S1 back surgery (04/2022) Obstetric History:- , all vaginal deliveries- Largest baby: 8 pounds- Last menstrual period: 04/2008 Social History:- Sexually active- Caffeine: two cups coffee in morning- Reports drinking water throughout da UA normalPVR 48 cc LLUVIA SAMSON MD [address] [facility] [address] [facility],[address], [place], [address], [facility] 05/03/2024 16:40:47 OBGyn Episode No OBEpisode recorded.
--- OUTSIDE RECORDS SUMMARY | 2025-01-31 19:14 | XMS_ITS | Clinical Summary ---
Author Organization [facility] Address [address] [place] [address] Care Team Providers Care Melt Supervisor Name Role Phone Thuy Franklin DO Primary Care Provider [phone] Allergies Active Allergy Reactions Criticality Noted Date Comments Sulfa (Sulfonamide Antibiotics) Rash 04/10 Medications acetaminophen (TYLENOL EXTRA STRGTH) 500 mg tabletIndications :Muscle pain, lumbar,Chronic left shoulder pain Take 1,000 mg by mouth every 6 hours if needed. Max acetaminophen dose: 4000mg in 24 hrs. 0 021 Active gabapentin (NEURONTIN) 300 mg capsuleIndication s:Herniated nucleus pulposus, L5-S1,Ulnar neuropathy of left upper extremity,Degener ation of intervertebral disc of lumbar region, unspecified whether pain present TAKE 1 CAPSULE(300 MG) BY MOUTH THREE TIMES DAILY 90 Capsule 025 Active Additional Information Patient not taking.Reported on 01/12/2025 hydrOXYzine HCL (ATARAX) 25 mg tabletIndications :Palpitations TAKE 1 TABLET(25 MG) BY MOUTH EVERY 6 HOURS NEEDED FOR ANXIETY 25 Tablet 025 Active amitriptyline 25 mg tabletIndications :Insomnia, idiopathic Take 1 Tablet (25 mg) by mouth at bedtime if needed for Sleep. 90 Tablet 025 Active ketoconazole 2 % creamIndications: Seborrheic dermatitis Apply topically to affected area(s) two times daily. 60 g 2 11/06/2 025 Active hydrOXYzine HCL (ATARAX) 25 mg tabletIndications :Palpitations Take 1 Tablet (25 mg) by mouth every 6 hours if needed for Anxiety. 25 Tablet 025 2024 Discontinued amitriptyline 25 mg tabletIndications :Insomnia, idiopathic TAKE 1 TABLET(25 MG) BY MOUTH AT BEDTIME NEEDED FOR SLEEP 30 Tablet 025 2024 Discontinued(R eorder (E-cancel not sent)) Active Problems Problem Noted Date Diagnosed Date Subacromial impingement of right shoulder 2023 Subacromial bursitis of right shoulder joint Degenerative disc disease, lumbar 02/07/2022 Overview (02/14/2022): S/p lumbar interbody fusion L5-S1 with Dr. Tapia at [facility] (02/2022) Hemorrhoids, internal 04/18/2021 Overview (04/18/2021): 7 o'clock position. Controlled substance agreement signed 01/12/2020 Overview (01/12/2020): Reviewed and resigned at [facility] [place] [place] 01/12/2020 Ulnar neuropathy of left upper extremity 019 Herniated nucleus pulposus, L5-S1 02/22/2018 Overview (02/14/2022): S/p lumbar interbody fusion L5-S1 with Dr. Tapia at [facility] (02/2022) Sacroiliac joint pain 01/14/2018 Nonintractable migraine 05/06/2017 Muscle pain, lumbar 02/09/2017 Overview (05/06/2017): Trial completed (from [facility]): cyclobenzaprine, meloxicam, Telferner, methocarbamol, oxaprozin, tarmadol, Seen by Pain clinic in [place] before (no GERBER obtained yet). Mention of previous back steroid injections in records from [place]. - Seen by Red Campos MD ([facility]; 01/22/2016): Summary of MRI report of lumbar spine dated 11/07/15 shows at L5-S1, a 3-4 mm posterior central disc protrusion, possibly extrusion with mild indentation along the ventral aspect of the thecal sac and to a lesser extent upon the S1 nerve root. At that time, a L5-S1 lumbar epidural steroid injection was recommended. - Seen by Gume Funez MD ([facility]; 12/06/2015): Recommended to continue with nonoperative treatment and pain management. 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 07/2015 Cold knife cone biopsy Colposcopy in 2017. 05/2016 She had the hysterectomy May 2016 in [place] for cervical cancer, recalls CIN3. 06/2017 NIL/HPV [...] obstruction 03/30/2018 09/13/2018 Overview (03/30/2018): Noted 02/19/18 ([facility]). Many small stones that fill the gallbladder noted. Helicobacter positive gastritis 03/17/2018 05/10/2018 Overview (03/17/2018): 03-08-18 EGD. [facility]. Treated the H pylori. Celiac labs ordered for follow up. Costochondritis 06/02/2017 03/30/2018 Sacroiliac joint pain 02/09/20172017 Encounters Date Type Department Care Team Description 01/12/2025 4:10 PM BRICK PAVER Office Visit [facility] [address] [place] [address] Giuseppe Elizondo MD Derm Problem (FOREHEAD IS ITCHY AND RED); Headache (X 1 WEEK) 01/11/2025 Travel 01/09/2025 Telephone [facility] [place] [address] [address] [phone] Babak Mendoza MD Letter For Work (Needs start date ) 01/05/2025 9:30 AM CDT Orders Only [address] [address] [place], [place] [facility] 01/05/[address] [address] Thuy Franklin DO Refill Request 01/04/2025 Travel 12/30/[address] [address] Thuy Franklin DO Refill Request (Hydroxyzine Hcl) 12/22/[address] [address] Thuy Franklin DO Results 12/19/2024 1:00 PM CDT Ancillary Procedure [facility] at [address] [address] 12/19/2024 Travel 12/14/2024 11:00 AM CDT Office Visit [address] [address] Thuy Franklin DO Dizziness (x6 days - feels like she has noticed some lightheadedness - feels like she had some low blood sugar/needed to eat but still feels like that it doesn't change now even if she sleeps - has been falling asleep about 12/17 - wakes up around 6am, wakes up a lot throughout the night ) 12/14/[address] [address] Shaqra, Adei, DO Refill Request (Amitriptyline) 12/14/2024 Travel 12/12/2024 Travel 12/08/2024 8:10 AM CDT Procedure Only [facility] [address] [place] [address] Que Reyes MD Procedure (USGI trigger point injection ri... 12/08/2024 Travel 12/05/2024 Travel 11/25/2024 1:30 PM CDT Office Visit [facility] [address] [place] [address] Babak Mendoza MD Surgical Followup (S/P right shoulder scope) 11/24/2024 Travel 11/14/2024 Refill [facility] [address] [place] [address] Thuy Franklin, Refill Request (Gabapentin) from Last 3 Months Immunizations Immunization Administration Dates Next Due Influenza, IIV4 02/06/2023,03/29/2018,02/05/2017 [...] Types Packs/Day Years Used Date Smoking Tobacco: Some Days Cigarettes 0.3 20.7 Started: 1999; Last attempted to quit: 05/11/2019 Smokeless Tobacco: Never Tobacco Cessation:Ready to Q uit: No; Counseling Given: Yes Alcohol Use Standard Drinks/Week Comments Yes 0 (1 standard drink = 0.6 oz pur e alcohol) occas PHQ-2 Answer Date Recorded PHQ-2 TOTAL SCORE 4 12/14/2024 Social Connections Answer Date Recorded Do you often feel lonely or isolated from those around you? 0 01/12/2025 Alcohol Use Answer Date Recorded How often do you have a drink containing alcohol ? 2 01/12/2025 How many drinks containing a lcohol do you have on a typical day when you are drinking? 0 01/12/2025 How often do you have five or more drinks on one occasion? 0 01/12/2025 Financial Resource Strain Answer Date R ecorded Difficulty of Paying Living Expenses 3 12/12/2024 Difficulty of Paying Living Expenses Not on file 12/12/2024 Food Insecurity Answer Date Recorded Do you worry your food will run out before you are able to buy more? 1 01/12/2025 Transportation Needs Answer Date Record ed Does lack of transportation keep you from medica l appointments? 1 01/12/2025 Does lack of transportation keep you from work, meetings or getting things that you need? 1 01/12/2025 Housing Stability Answer Date Recorded What is your housing situation today? 1 01/12/2025 Utilities Answer Date Recorded Do you have trouble paying f or utilities (for example, heat, electricity, water, phone)? 1 01/12/2025 Comments No Sex and Gender Information Value Date Recorded Sex Assigned at Not on file Legal Sex Female 8:36 AM BRICK PAVER Gender Identity Not on file Sexual Orientation Not on file Obstetrics History Last Filed Vital Signs Vital Sign Reading Time Taken Comments Blood Pressure 113/71 01/12/2025 4:11 PM BRICK PAVER Pulse 87 01/12/2025 4:11 PM BRICK PAVER Temperature 36.8 C (98.3 F) 12/08/2024 8:08 AM CDT Respiratory Rate 20 02/10/2022 7:50 AM BRICK PAVER Oxygen Saturation 98% 01/12/2025 4:11 PM BRICK PAVER Inhaled Oxygen Concentration - - Weight 100.7 kg (221 lb 14.4 oz) 01/12/2025 4:11 PM BRICK PAVER Height 157.5 cm (5' 2) 01/12/2025 4:11 PM BRICK PAVER Body Mass Index 40.59 01/12/2025 4:11 PM BRICK PAVER Plan of Treatment Health Maintenance Due Date Last Done Comments Hepatitis B series for 19+ ( 1 of 3 - 19+ 3-dose series) 2003 Pneumococcal series for age 6-49 (1 of 2 - PCV) 2003 HPV series for age 9-45 (1 - 3-dose SCDM series) 2011 Influenza Vaccine (#1) 2024 , 03/29/2018, 02/05/2017 Depression screening for age 12+ 12/14/2025 12/14/2024, 03/31/2024, 08/15/2022, Additional history exists BMI (ht and wt on same day) for age 18+ 01/12/2026 01/12/2025, 03/31/2024, 02/06/2023, Additional history exists Pap test for age 21-65 05/12/2026 , 05/13/2023, 10/10/2021, Additional history exists Tetanus booster 03/29/2028 03/29/2018 RSV vaccine for adults or (1 - 1-dose 75+ series) 2059 HIV for age 15-65 Completed 10/10/2021, 02/08/2020 Hepatitis C screening for ag e 18-79 Completed 10/10/2021 Medical Devices Implanted Type Area Pattern Data Operator Device Identifier Shelf Expiration Date Model / Serial / Lot Set Screw Lmbr Ant 5.5mm Solera Break Off - [id number] Implanted:Qty: 4 on 02/07/2022 by Hal Tapia MD at [facility] N/A: Spine Medtronic Spine/Ortho [id number] / / Benjamín Lmbr 45x5.5mm Solera 5.5/6 Cvd Titnm - [id number] Implanted:Qty: 2 on 02/07/2022 by Hal Tapia MD at [facility] N/A: Spine Medtronic Spine/Ortho [id number] / / Screw Lmbr Post 6.5x40mm Solera 5.5/6 Va Cocr - [id number] Implanted:Qty: 2 on 02/07/2022 by Hal Tapia MD at [facility] N/A: Spine Medtronic Spine/Ortho [id number] / / Screw Lmbr Post 6.5x45mm Solera 5.5/6 Va Cocr - [id number] Implanted:Qty: 2 on 02/07/2022 by Hal Tapia MD at [facility] N/A: Spine Medtronic Spine/Ortho [id number] / / Screw Lmbr 5.5x25mm Endo Skeleton Tas Bone Alif Stand Alone - [id number] Implanted:Qty: 3 on 02/07/2022 by Hal Tapia MD at [facility] N/A: Spine Medtronic Spine/Ortho [id number] / / Jeremiah Spacer Tas 7dg Std 12mm Implanted:Qty: 1 on 02/07/2022 by Hal Tapia MD at [facility] N/A: Spine 01/14/2026 [id number] / / [id number] Description:JEREMIAH SPACER TAS 7DG STD 12MM [id number] one Matrix 6cc Destini Dbf Putty Dbm Implanted:Qty: 1 on 02/07/2022 by Hal Tapia MD at [facility] Explanted:at [facility] (Quantity not on file) N/A: Spine Medtronic Spine/Ortho 12/31/2023 [id number] / [id number] / Bone 1-4mm 30cc Medtronic Chips Canclls Freeze Dried - [id number] Implanted:Qty: 1 on 02/07/2022 by Hla Tapia MD at [facility] Explanted:at [facility] (Quantity not on file) N/A: Spine Medtronic Spine/Ortho 12/17/2025 [id number] / [id number] / Bone 1-4mm 30cc Medtronic Chips Canclls Freeze Dried - [id number] Implanted:Qty: 1 on 02/07/2022 by Hal Tapia MD at [facility] Explanted:at [facility] (Quantity not on file) N/A: Spine Medtronic Spine/Ortho 12/16/2025 [id number] / [id number] / Procedures Procedure Name Priority Date/Time Associated Diagnosis Comments HEPATIC FUNCTION PANEL Routine 9:29 AM CDT Transaminitis ECHO TTE COMPLETE WO CONTRAST FITO 12/19/2024 1:31 PM CDT Systolic murmur Chest pain, unspecified type T4,FREE Routine 12/14/2024 11:39 AM CDT Weakness Dizziness Poor sleep CBC WITH AUTO DIFFERENTIAL Routine 12/14/2024 11:39 AM CDT Weakness Dizziness Poor sleep C-REACTIVE PROTEIN Routine 12/14/2024 11 :39 AM CDT Chest pain, unspecified type SEDIMENTATION RATE Routine 12/14/2024 11 :39 AM CDT Chest pain, unspecified type FERRITIN Routine 12/14/2024 11:39 AM CDT Weakness Dizziness Poor sleep TSH WITH REFLEX Routine 12/14/2024 11:39 AM CDT Weakness Dizziness Poor sleep COMP METABOLIC PANEL Routine 12/14/2024 11:39 AM CDT Weakness Dizziness Poor sleep CBC WITH AUTO DIFFERENTIAL Routine 12/14/2024 11:39 AM CDT Weakness Dizziness Poor sleep BEDSIDE US STUDY ARCHIVE Routine 12/08/2024 9:54 AM CDT Trapezius muscle strain, right, subsequent encounter CLOTH FINISHER THIN PREP PAP SCREEN IMAGED Routine 05/13/2023 8:50 AM BRICK PAVER Screening for cervical cancer ANTI HIV 1/2 Routine 10/10/2021 12:29 PM CDT Screening examination for STD (sexually transmitted disease) ANTI HCV Routine 10/10/2021 12:29 PM CDT Screening examination for STD (sexually transmitted disease) from Last 3 Months or Most Recently Relevant to Health Maintenance Results * HEPATIC FUNCTION PANEL (01/05/2025 9:29 AM CDT) ALBUMIN 4.6 3.6 - 5.1 g/dL 01/06/2025 5:26 AM CDT [facility] PROTEIN, TOTAL 7.4 6.1 - 8.1 g/dL 01/06/2025 5:26 AM CDT [facility] BILIRUBIN, TOTAL 0.6 0.2 - 1.2 mg/dL 01/06/2025 5:26 AM CDT [facility] BILIRUBIN, DIRECT 0.1 < OR = 0.2 mg/dL 01/06/2025 5:26 AM CDT [facility] BILIRUBIN, INDIRECT 0.5 0.2 - 1.2 mg/dL (calc) 01/06/2025 5:26 AM CDT [facility] ALKALINE PHOSPHATASE 80 31 - 125 U/L 01/06/2025 5:26 AM CDT [facility] ALT 19 6 - 29 U/L 01/06/2025 5:26 AM CDT [facility] AST 17 10 - 30 U/L 01/06/2025 5:26 AM CDT [facility] GLOBULIN 2.8 1.9 - 3.7 g/dL (calc) 01/06/2025 5:26 AM CDT [facility] ALBUMIN/GLOBULIN RATIO 1.6 1.0 - 2.5 (calc) 01/06/2025 5:26 AM CDT [facility] Blood BLOOD SPECIMEN / Unknown [facility] / Unknown 01/05/2025 9:29 AM CDT 01/05/2025 9:29 AM CDT Thuy Franklin DO CHEMISTRY Final Result [facility] [id number] [place] [address], * ECHO TTE COMPLETE WO CONTRAST (12/19/2024 1:31 PM CDT) AORTIC VALVE MEAN PG 6 mmHg EJECTION FRACTION 74 % PEAK TR VELOCITY 2.5 m/s LVEDD 5.2 cm Anatomical Region Laterality Modality Ultrasound 12/19/2024 1:03 PM CDT Narrative 12/19/2024 1:55 PM CDT ECHOCARDIOGRAM JESSIE VALERO : 1985 39 years Study Date: 12/19/2024 1:03:44 PM Gender: F BP: 113/65 mmHg Height: 155.00 cm BSA: 1.97 m Weight: 100.00 kg Tech: ZOHREH Referring MD: THUY FRANKLIN Site: [facility] Reading Location: Mobile-OP Patient Location: Outpatient. Procedure: 2D, Color Doppler and Spectral Doppler. Indication for study: Systolic murmur; Chest pain, unspecified type Cardiac Rhythm: Regular.Study quality: Fair. Imaging limitations: This study was subject to imaging limitations due to a prominent lung artifact. Final Impressions: 1. Normal left ventricular size, normal wall thickness, normal global systolic function, calculated EF of 74 %. 2. Right ventricular cavity size is normal, global systolic RV function is normal. 3. Normal left atrium size. 4. The aortic valve is normal and trileaflet, no stenosis and trivial regurgitation. 5. The mitral valve is normal, mild mitral regurgitation. 6. Tricuspid valve is normal, trace tricuspid regurgitation. 7. No pericardial effusion. Chamber Sizes and Function Normal left ventricular size, normal wall thickness, normal global systolic function, calculated EF of 74 %. No resting regional wall motion abnormality visualized. Left atrial size is normal. Right ventricular cavity size is normal, global systolic RV function is normal. The right atrium is normal. Right atrial volume index is 26 ml/m . Right atrial area is 18 cm . The pulmonary artery is not well visualized. The sinus of Valsalva is normal sized. The ascending aorta is normal sized. Valves, RV Pressures and Diastolic Function The aortic valve is normal in structure and trileaflet, no stenosis and trivial regurgitation. The mitral valve is normal in structure, mild mitral regurgitation. Normal diastolic function. The tricuspid valve is normal in structure, trace tricuspid regurgitation. The tricuspid regurgitant velocity is 2.5 m/s, the estimated right ventricular systolic pressure is 24 mmHg plus right atrial pressure. There is normal estimated pulmonary pressure by tricuspid regurgitation velocity and right atrial pressure. The pulmonic valve is not well visualized. Trace pulmonary regurgitation. Masses, Effusion, Shunts There is no pericardial effusion. The inferior vena cava is normal sized, respiratory size variation greater than 50%. No left to right shunting was detected by limited color flow Doppler interrogation of the interatrial septum. MEASUREMENTS AND CALCULATIONS 2-D Measurements and LV Function: LVID (d) 5.2 cm Planimetered EF 74 % LVID (s) 3.4 cm LV FS% (2D) 33 % IVS (d) 1.0 cm LVOT diameter 2.2 cm LVPW (d) 1.0 cm HR 84 bpm Ao Sinus 2.8 cm LA Vol index 24 ml/m2 Ao Sinus ULN 3.6 cm * RA Vol index 26 ml/m2 Asc Ao 2.8 cm RA area 18 cm Asc Ao ULN 3.6 cm * RV Basal Diam 3.8 cm LA 3.6 cm RV Mid Diam 3.1 cm * Input BSA outside of range, reported values correspond to BSA = 1.9 Diastology: Mitral Tissue Doppler E Peak 0.8 m/s e', Septum 0.10 m/s A Peak 0.8 m/s e', Lateral 0.12 m/s E/A 1.1 E/e' Average 7.47 DT 211 msec Aortic Valve: Vmax 1.6 m/s ROS (V) 2.76 cm VTI 0.33 m ROS (I) 2.73 cm LVOT V max 1.2 m/s Max PG 10 mmHg LVOT VTI 0.25 m Mean PG 6 mmHg SV 90 ml Dim Index 0.75 SV index 46 ml/m CO 7.6 l/min CI 3.8 l/min/m Mitral Valve: MVA 3.6 cm MV P 1/2 61 msec Tricuspid Valve and estimated PA pressures: TR Vmax 2.5 m/s TAPSE 3.3 cm TR maxG 24 mmHg . This study was interpreted by an [facility] accredited facility. Final Procedure Note Anny Jacobs, [facility] - 12/19/2024 ECHOCARDIOGRAM JESSIE VALERO : 1985 39 years Study Date: 12/19/2024 1:03:44 PM Gender: F BP: 113/65 mmHg Height: 155.00 cm BSA: 1.97 m Weight: 100.00 kg Tech: ZOHREH Referring MD: THUY FRANKLIN Site: [facility] Reading Location: Mobile-OP Patient Location: Outpatient. Procedure: 2D, Color Doppler and Spectral Doppler. Indication for study: Systolic murmur; Chest pain, unspecified type Cardiac Rhythm: Regular.Study quality: Fair. Imaging limitations: This study was subject to imaging limitations due toa prominent lung artifact. Final Impressions: 1. Normal left ventricular size, normal wall thickness, normal globalsystolic function, calculated EF of 74 %. 2. Right ventricular cavity size is normal, global systolic RV functionis normal. 3. Normal left atrium size. 4. The aortic valve is normal and trileaflet, no stenosis and trivialregurgitation. 5. The mitral valve is normal, mild mitral regurgitation. 6. Tricuspid valve is normal, trace tricuspid regurgitation. 7. No pericardial effusion. Chamber Sizes and Function Normal left ventricular size, normal wall thickness, normal globalsystolic function, calculated EF of 74 %. No resting regional wall motionabnormality visualized. Left atrial size is normal. Right ventricularcavity size is normal, global systolic RV function is normal. The rightatrium is normal. Right atrial volume index is 26 ml/m . Right atrialarea is 18 cm . The pulmonary artery is not well visualized. The sinus ofValsalva is normal sized. The ascending aorta is normal sized. Valves, RV Pressures and Diastolic Function The aortic valve is normal in structure and trileaflet, no stenosis andtrivial regurgitation. The mitral valve is normal in structure, mildmitral regurgitation. Normal diastolic function. The tricuspid valve isnormal in structure, trace tricuspid regurgitation. The tricuspidregurgitant velocity is 2.5 m/s, the estimated right ventricular systolicpressure is 24 mmHg plus right atrial pressure. There is normal estimatedpulmonary pressure by tricuspid regurgitation velocity and right atrialpressure. The pulmonic valve is not well visualized. Trace pulmonaryregurgitation. Masses, Effusion, Shunts There is no pericardial effusion. The inferior vena cava is normal sized,respiratory size variation greater than 50%. No left to right shunting wasdetected by limited color flow Doppler interrogation of the interatrialseptum. MEASUREMENTS AND CALCULATIONS 2-D Measurements and LV Function: LVID (d) 5.2 cm Planimetered EF 74% LVID (s) 3.4 cm LV FS% (2D) 33% IVS (d) 1.0 cm LVOT diameter2.2 cm LVPW (d) 1.0 cm HR 84bpm Ao Sinus 2.8 cm LA Vol index 24ml/m2 Ao Sinus ULN 3.6 cm * RA Vol index 26ml/m2 Asc Ao 2.8 cm RA area 18cm Asc Ao ULN 3.6 cm * RV Basal Diam3.8 cm LA 3.6 cm RV Mid Diam3.1 cm * Input BSA outside of range, reported values correspond to BSA = 1.9 Diastology: Mitral Tissue Doppler E Peak 0.8 m/s e', Septum 0.10 m/s A Peak 0.8 m/s e', Lateral 0.12 m/s E/A 1.1 E/e' Average 7.47 DT 211 msec Aortic Valve: Vmax 1.6 m/s ROS (V) 2.76 cm VTI 0.33 m ROS (I) 2.73 cm LVOT V max 1.2 m/s Max PG 10 mmHg LVOT VTI 0.25 m Mean PG 6 mmHg SV 90 ml Dim Index 0.75 SV index 46 ml/m CO 7.6 l/min CI 3.8 l/min/m Mitral Valve: MVA 3.6 cm MV P 1/2 61 msec Tricuspid Valve and estimated PA pressures: TR Vmax 2.5 m/s TAPSE 3.3 cm TR maxG 24 mmHg . This study was interpreted by an [facility] accredited facility. Final Thuy Franklin DO ECHO ORD Final Result * SEDIMENTATION RATE (12/14/2024 11:39 AM CDT) Pathologist [facility] SED RATE BY MODIFIED CODYERGREN 9 < OR = 20 mm/h 12/15/2024 4:00 AM CDT [facility] Blood BLOOD SPECIMEN / Unknown [facility] / Unknown 12/14/2024 11:39 AM CDT 12/14/2024 11:36 AM CDT Thuy Franklin DO HEMATOLOGY Final Result [facility] [address] [place] [address], [place] [phone] * CBC WITH AUTO DIFFERENTIAL (12/14/2024 11:39 AM CDT) Pathologist [facility] WHITE BLOOD CELL COUNT 8.5 3.8 - 10.8 Thousand/u L 12/15/2024 3:31 AM CDT [facility] RED BLOOD CELL COUNT 4.66 3.80 - 5.10 Million/uL 12/15/2024 3:31 AM CDT [facility] HEMOGLOBIN 13.3 11.7 - 15.5 g/dL 12/15/2024 3:31 AM CDT [facility] HEMATOCRIT 41.2 35.0 - 45.0 % 12/15/2024 3:31 AM CDT [facility] MCV 88.4 80.0 - 100.0 fL 12/15/2024 3:31 AM CDT [facility] MCH 28.5 27.0 - 33.0 pg 12/15/2024 3:31 AM CDT [facility] MCHC 32.3 32.0 - 36.0 g/dL 12/15/2024 3:31 AM CDT [facility] Comment: For adults, a slight decrease in the calculated MCHC value (in the range of 30 to 32 g/dL) is most likely not clinically significant; however, it should be interpreted with caution in correlation with other red cell parameters and the patient's clinical condition. RDW 12.5 11.0 - 15.0 % 12/15/2024 3:31 AM CDT [facility] PLATELET COUNT 382 140 - 400 Thousand/u L 12/15/2024 3:31 AM CDT [facility] MPV 10.5 7.5 - 12.5 fL 12/15/2024 3:31 AM CDT [facility] NEUTROPHILS 66.2 % 12/15/2024 3:31 AM CDT [facility] LYMPHOCYTES 25.4 % 12/15/2024 3:31 AM CDT [facility] MONOCYTES 6.4 % 12/15/2024 3:31 AM CDT [facility] EOSINOPHILS 1.2 % 12/15/2024 3:31 AM CDT [facility] BASOPHILS 0.8 % 12/15/2024 3:31 AM CDT [facility] ABSOLUTE NEUTROPHILS 5627 1500 - 7800 cells/uL 12/15/2024 3:31 AM CDT [facility] ABSOLUTE LYMPHOCYTES 2159 850 - 3900 cells/uL 12/15/2024 3:31 AM CDT [facility] ABSOLUTE MONOCYTES 544 200 - 950 cells/uL 12/15/2024 3:31 AM CDT [facility] ABSOLUTE EOSINOPHILS 102 15 - 500 cells/uL 12/15/2024 3:31 AM CDT [facility] ABSOLUTE BASOPHILS 68 0 - 200 cells/uL 12/15/2024 3:31 AM CDT [facility] Blood BLOOD SPECIMEN / Unknown [facility] / Unknown 12/14/2024 11:39 AM CDT 12/14/2024 11:36 AM CDT Dinanery Martinezqra DO HEMATOLOGY Final Result Performing Organization Address [facility]/ZIP Co de Phone Number [facility] [address] [place] [address], * (ABNORMAL) TSH WITH REFLEX (12/14/2024 11:39 AM CDT) TSH W/REFLEX TO FT4 0.39(L) mIU/L 12/15/2024 10:07 AM CDT [facility] Comment: Reference Range > or = 20 Years 0.40-4.50 Ranges First trimester 0.26-2.66 Second trimester 0.55-2.73 Third trimester 0.43-2.91 Blood BLOOD SPECIMEN / Unknown [facility] / Unknown 12/14/2024 11:39 AM CDT 12/14/2024 11:36 AM CDT Thuy Franklin DO CHEMISTRY Final Result Performing Organization Address [facility] de Phone Number [facility] [address] [address], * (ABNORMAL) C-REACTIVE PROTEIN (12/14/2024 11:39 AM CDT) C-REACTIVE PROTEIN (MG/L) 8.3(H) <8.0 mg/L 12/15/2024 11:29 AM CDT [facility] Blood BLOOD SPECIMEN / Unknown [facility] / Unknown 12/14/2024 11:39 AM CDT 12/14/2024 11:36 AM CDT Dinanery Martinezleon CHEMISTRY Final Result Performing Organization Address [facility]/ZIP Co de Phone Number [facility] [id number] [place] [address], * T4,FREE (12/14/2024 11:39 AM CDT) Pathologist [facility] T4, FREE 1.3 0.8 - 1.8 ng/dL 12/15/2024 10:07 AM CDT [facility] Blood BLOOD SPECIMEN / Unknown [facility] / Unknown 12/14/2024 11:39 AM CDT 12/14/2024 11:36 AM CDT Thuy Franklin CHEMISTRY Final Result Performing Organization Address [facility]/ZIP Co de Phone Number [facility] [address] [address], * FERRITIN (12/14/2024 11:39 AM CDT) Pathologist [facility] FERRITIN 129 16 - 154 ng/mL 12/15/2024 5:41 AM CDT [facility] Blood BLOOD SPECIMEN / Unknown [facility] / Unknown 12/14/2024 11:39 AM CDT 12/14/2024 11:36 AM CDT Thuy Martinezraffy CHEMISTRY Final Result Performing Organization Address [facility] de Phone Number [facility] [address] [address], [place] [phone] * (ABNORMAL) COMP METABOLIC PANEL (12/14/2024 11:39 AM CDT) Pathologist [facility] SODIUM 139 135 - 146 mmol/L 12/15/2024 4:59 AM CDT [facility] POTASSIUM 4.8 3.5 - 5.3 mmol/L 12/15/2024 4:59 AM CDT [facility] CHLORIDE 104 98 - 110 mmol/L 12/15/2024 4:59 AM CDT [facility] CARBON DIOXIDE 28 20 - 32 mmol/L 12/15/2024 4:59 AM CDT [facility] GLUCOSE 81 65 - 99 mg/dL 12/15/2024 4:59 AM CDT [facility] Comment: Fasting reference interval CALCIUM 9.9 8.6 - 10.2 mg/dL 12/15/2024 4:59 AM CDT [facility] CREATININE 0.57 0.50 - 0.99 mg/dL 12/15/2024 4:59 AM CDT [facility] BUN/CREATININE RATIO SEE NOTE: 6 - 22 (calc) 12/15/2024 4:59 AM CDT [facility] Comment: Not Reported: BUN and Creatinine are within reference range. EGFR 118 > OR = 60 mL/min/1. 73m2 12/15/2024 4:59 AM CDT [facility] ALBUMIN 4.6 3.6 - 5.1 g/dL 12/15/2024 4:59 AM CDT [facility] PROTEIN, TOTAL 7.3 6.1 - 8.1 g/dL 12/15/2024 4:59 AM CDT [facility] BILIRUBIN, TOTAL 0.5 0.2 - 1.2 mg/dL 12/15/2024 4:59 AM CDT [facility] ALKALINE PHOSPHATASE 89 31 - 125 U/L 12/15/2024 4:59 AM CDT [facility] ALT 124(H) 6 - 29 U/L 12/15/2024 4:59 AM CDT [facility] AST 93(H) 10 - 30 U/L 12/15/2024 4:59 AM CDT [facility] UREA NITROGEN (BUN) 8 7 - 25 mg/dL 12/15/2024 4:59 AM CDT [facility] GLOBULIN 2.7 1.9 - 3.7 g/dL (calc) 12/15/2024 4:59 AM CDT [facility] ALBUMIN/GLOBULI N RATIO 1.7 1.0 - 2.5 (calc) 12/15/2024 4:59 AM CDT [facility] Blood BLOOD SPECIMEN / Unknown [facility] / Unknown 12/14/2024 11:39 AM CDT 12/14/2024 11:36 AM CDT us Thuy Franklin DO CHEMISTRY Final Result [facility] [address] [place] [address], * BEDSIDE US STUDY ARCHIVE (12/08/2024 9:54 AM CDT) Narrative Orin Florez A - 12/08/2024 9:54 AM CDT The patient was seen for ultrasound guided injection by Dr. Que Reyes. Ultrasound was not used for diagnostic purposes, but to guide the needle placement and document the position of the injection. See patient's EPIC encounter for the detail of the procedure; see MERC[facility] for saved images of the injection. us Que Reyes MD PROCEDURE ORD Final Resu lt * CLOTH FINISHER THIN PREP PAP SCREEN IMAGED [[id number]] (05/13/2023 8:50 AM BRICK PAVER) Case Report Gynecologic Cytology Report Case: [id number] Authorizing Provider: Gale Chamberlain DO Collected: 05/13/2023 0850 Ordering Location: [facility] Received: 05/13/2023 0914 Clinic First Screen: Annalise Griggs Specimen: CLOTH FINISHER ThinPrep Vial Screening, Cervical 05/19/2023 7:18 PM CDT [facility] INTERPRETATION /RESULT NEGATIVE FOR INTRAEPITHELIAL LESION OR MALIGNANCY (NIL) (none) 05/19/2023 7:18 PM CDT [facility] at 1918 CDT SPECIMEN ADEQUACY Satisfactory for evaluation 05/19/2023 7:18 PM CDT [facility] [employer] [facility] HPV REQUEST HPV and PAP 05/19/2023 7:18 PM CDT [facility]-C ENTRAL LABORATORY Date of LMP n/a 05/19/2023 7:18 PM CDT [facility] [employer] [facility]-C ENTRAL LABORATORY Last Pap Date 10/10/21 05/19/2023 7:18 PM CDT [email or web address]AL LABORATORY Last Pap Result NIL 05/19/2023 7:18 PM CDT [facility] Abnormal Pap or [place] Bx in last 5 years No 05/19/2023 7:18 PM CDT [email or web address]AL LABORATORY Menstrual Status Hysterectomy-cervi x absent 05/19/2023 7:18 PM CDT [facility] [place] Bx Done Today No 05/19/2023 7:18 PM CDT [facility] Additional Information None given 05/19/2023 7:18 PM CDT [facility] ENTRMD [facility]ORATORY Comment: Cytology is screened at [facility] - [address], [place] [address] and [facility] - [address], [place] [address] and [facility] - [address] [place] [address] Interpreted at [facility] - [address], [place] [address] Automated Review Failed 05/19/2023 7:18 PM CDT [facility] Comment:Processing failed, m anual screening required. ThinPrep Imaging System, [employer] ANCILLARY TESTING CLOTH FINISHER HPV Ordered, Please see separate report 05/19/2023 7:18 PM CDT [facility] Note The pap test is a screening technique, not a diagnostic procedure. It is used primarily to screen for squamous cancers and precursor lesions. Published studies have shown that it is subject to both false negative and false positive results. The pap test should not be used as the sole means to diagnose or exclude pre-malignant and malignant lesions. 05/19/2023 7:18 PM CDT [facility] Other (Cervical) Non-Blood / Unknown 05/13/2023 8:50 AM BRICK PAVER 05/13/2023 9:14 AM BRICK PAVER us Gale Chamberlain DO PATHOLOGY/CYTOLOGY Final R esult [facility] [address] [place] [address], [place] * ANTI HCV (10/10/2021 12:29 PM CDT) HEPATITIS C ANTIBODY Non-React carolina Non-React carolina 10/12/2021 4:21 AM CDT [facility] TRAL LABORATORY Comment:Antibodies to HCV no t detected; does not exclude the possibility of exposure to HCV. Blood BLOOD SPECIMEN / Unknown Venipuncture / Unknown 10/10/2021 12:29 PM CDT 10/10/2021 12:29 PM CDT Zach Benitez MD SEND OUTS Final Result [facility] [address] [place] [address], * ANTI HIV 1/2 (10/10/2021 12:29 PM CDT) HIV-1/HIV-2 ANTIBODY Non-Reacti ve Non-Reacti ve 10/12/2021 4:19 AM CDT [facility] TRAL LABORATORY Comment:HIV-1 p24 and HIV-1/ HIV-2 Ab not detected. Blood BLOOD SPECIMEN / Unknown Venipuncture / Unknown 10/10/2021 12:29 PM CDT 10/10/2021 12:29 PM CDT Zach Benitez MD SEND OUTS Final Result Performing Organization Address City/[facility]/ZIP Co de Phone Number [facility] [address] [place] [address], from Last 3 Months or Most Recently Relevant to Health Maintenance Additional Health Concerns Infection Onset Date Last Indicated MRSA Clearance Comment:Infection Control Note: Hx of MRSA, surveillance criteria met, no need for further testing or isolation precautions. Do not delete or resolve the infection flag. 06/07/2018 06/07/2018 Insurance [facility] Advance Directives * Full Code (Latest Code Status on File) Date Activated Date Inactivated Comments 02/07/2022 8:47 PM 02/10/2022 1:46 PM Question Answer Comments Code Status Discussion: Reviewed Preferences * Full Code Date Activated Date Inactivated Comments 06/07/2018 6:05 AM 06/07/2018 1:19 PM Care Teams Melt Supervisor Relationship Specialty Start Date End Date Thuy Franklin [place] [address] [place] [address] PCP - General Family Practice 09/04/23
[2025-01-31 19:22] VITALS: BP 122/75; PULSE 90; RESP 20; TEMP 36.8; O2SAT 99; BMI 36.6
--- NOTE | 2025-01-31 20:27 | ED.ANIMALBIT ---
HPI - Animal Bite General Chief Complaint: Animal Bite Stated Complaint: dog bite L hand Time Seen by Provider: 01/31/25 20:11 History of Present Illness HPI narrative: This 39-year-old female comes in with a dog bite to her left hand. This occurred about an hour prior to arrival. She states that there was a gait between her dog and some unknown dog and has the 2 dogs began to escalate she attempted to separate them and got bit in her left hand. Her dogs vaccination status is up-to-date but the other dog is unknown. She comes in with small punctures in lacerations to her left middle, ring, and little fingers. Related Data Home Medications ?Medication ?Instructions ?Recorded ?Confirmed gabapentin 300 mg capsule 300 mg PO 3XD 09/08/23 09/08/23 meloxicam 15 mg tablet 15 mg PO DAILY 09/08/23 09/08/23 tramadol 50 mg tablet mg PO 03/04/24 amitriptyline 10 mg tablet 10 mg PO QPM 03/21/24 03/21/24 Previous Rx's ?Medication ?Instructions ?Recorded ondansetron 4 mg disintegrating 4 mg PO Q6H #20 tabs 03/21/24 tablet Allergies Allergy/AdvReac Type Severity Reaction Status Date / Time Sulfa (Sulfonamide Allergy Severe Rash Verified 03/04/24 19:36 Antibiotics) Review of Systems Status of ROS: Reports: 10 or more systems reviewed and unremarkable except as noted in History and below Narrative: Constitutional: No fevers, no weight gain or loss. Eyes: No discharge. No vision changes. HENT: No congestion, no sore throat, no ear pain. Cardiovascular: No chest pain, no palpitations. Respiratory: No shortness of breath, no wheezes, no cough. Gastrointestinal: No abdominal pain, no vomiting, no diarrhea. Genitourinary: No dysuria, no hematuria. Musculoskeletal: Normal range of motion. Left hand injury as described above. Skin: No rashes, no pruritis. Neurological: No dizziness, weakness, sensory change, speech change. Endo/Heme/Allergies: No bruising or bleeding. No polydipsia. Pysch: no suicidality, no anxiety, no insomnia. All other systems reviewed and are negative. [facility] Medical History (Updated 01/31/25 @ 20:34 by Johnny Song MD) DDD (degenerative disc disease), lumbar ?M51.369 - Other intervertebral disc degeneration, lumbar region without mention of lumbar back pain or lower extremity pain (ICD-10) Controlled substance agreement signed ?Z79.899 - Other petroleum terminal plant operator (current) drug therapy (ICD-10) Ulnar neuropathy of left upper extremity ?G56.22 - Lesion of ulnar nerve, left upper limb (ICD-10) Herniated nucleus pulposus Sacroiliac joint pain ?M53.3 - Sacrococcygeal disorders, not elsewhere classified (ICD-10) Nonintractable migraine ?G43.009 - Migraine without aura, not intractable, without status migrainosus (ICD-10) Depression ?F32.A - Depression, unspecified (ICD-10) DUNIA III (cervical intraepithelial neoplasia grade III) with severe dysplasia ?D06.9 - Carcinoma in situ of cervix, unspecified (ICD-10) Muscle pain, lumbar ?M79.18 - Myalgia, other site (ICD-10) Surgical History (Updated 01/31/25 @ 19:57 by Doni Escobar RN) History of hysteroscopy ?Z98.890 - Other specified postprocedural states (ICD-10) History of lumbosacral spine surgery ?Z98.890 - Other specified postprocedural states (ICD-10) History of ovarian cystectomy ?Z98.890 - Other specified postprocedural states (ICD-10) ?Z87.42 - Personal history of other diseases of the female genital tract (ICD-10) History of laparoscopic cholecystectomy ?Z90.49 - Acquired absence of other specified parts of digestive tract (ICD-10) History of laparoscopic appendectomy ?Z90.49 - Acquired absence of other specified parts of digestive tract (ICD-10) History of colposcopy ?Z98.890 - Other specified postprocedural states (ICD-10) History of abdominal hysterectomy ?Z90.710 - Acquired absence of both cervix and uterus (ICD-10) Social History Smoking Status: Former smoker Second hand tobacco smoke exposure: No How often do you have a drink containing alcohol: never AUDIT-C Alcohol total score: 0 Non-prescribed substance use: denies use service: No Exam Narrative: Exam Narrative: Constitutional: Well-developed, well-nourished, no acute distress. HEENT: Normocephalic, atraumatic. Neck: Normal range of motion. Nontender. Supple. Heart: Intact distal pulses. Lungs: No chest discomfort. No wheezes, rhonchi, or rales. Abdomen: Nontender. Back: Normal range of motion. Extremities: Normal range of motion. Left middle finger has 2 small lacerations. Left ring finger has a small puncture wound as does the left little finger. Skin: Intact. No rash. Warm. No erythema or pallor. Neurologic: No altered sensation. No weakness. Alert and oriented. Psychiatric: No suicidality. No anxiety or depression. No insomnia. Nursing notes and vitals signs are reviewed. Const: Vital Signs, click to edit/add: Vital Signs - 24 hr 01/31/25 19:22 Temperature 98.2 F Pulse Rate [Right Pulse Oximeter] 90 Respiratory Rate 20 Blood Pressure [Ri ght Upper Arm] 122/75 Pulse Oximetry 99 Oxygen Delivery Me thod Room Air Course Vital Signs Vital signs: Initial Vital Signs Temperature 98.2 F 01/31/25 19:22 Temperature Source Temporal Artery Scan 01/31/25 19:22 Pulse Rate 90 01/31/25 19:22 Respiratory Rate 20 01/31/25 19:22 Blood Pressure 122/75 01/31/25 19:22 Blood Pressure Mean 90 01/31/25 19:22 Blood Pressure Position Sitting 01/31/25 19:22 Pulse Oximetry 99 01/31/25 19:22 Oxygen Delivery Method Room Air 01/31/25 19:22 Vital Signs Temperature 98.2 F 01/31/25 19:22 Pulse Rate 90 01/31/25 19:22 Respiratory Rate 20 01/31/25 19:22 Blood Pressure 122/75 01/31/25 19:22 Pulse Oximetry 99 01/31/25 19:22 Oxygen Delivery Method Room Air 01/31/25 19:22 Temperature 98.2 F 01/31/25 19:22 Pulse Rate 90 01/31/25 19:22 Respiratory Rate 20 01/31/25 19:22 Blood Pressure 122/75 01/31/25 19:22 Pulse Oximetry 99 01/31/25 19:22 Oxygen Delivery Method Room Air 01/31/25 19:22 MDM - Animal Bite MDM Narrative Medical decision making narrative: This patient has injury to her left fingers from a dog bite. There were 2 dogs involved and 1 of them has uncertain status for vaccinations. I did discuss the wounds on her hand and offered repair of the wounds but indicated that there would not be much improvement to try to approximate the edges for the sizes of these wounds. The patient is okay with that Ng them heal naturally. She did receive antibiotic ointment and dressing over the wounds. This patient does have a risk for rabies exposure as the other dog that perhaps bit her is unknown and cannot be observed so I did order immunoglobulin and vaccination is for today and set up arrangement for repeat vaccinations on January 26 of February 06, and February 13. Also provided a returned to work note. A prescription for Keflex is provided from the [employer]. Discharge Plan Discharge Clinical Impression: Dog bite Patient Disposition: Home, Self-Care Condition: Stable Additional Instructions: Take oral medication as prescribed. Return on January 26 of February 06, and February 13 for repeat vaccinations for the rabies series. Follow up with MD otherwise as needed or return if worsening. Prescriptions: No Action gabapentin 300 mg capsule 300 mg PO 3XD meloxicam 15 mg tablet 15 mg PO DAILY tramadol 50 mg tablet PO amitriptyline 10 mg tablet 10 mg PO QPM ondansetron 4 mg tablet,disintegrating 4 mg PO Q6H Qty: 20 0RF Follow Up/Referrals: Provider,Not a Local [Primary Care Provider, Family Practice] Stand Alone Forms: [employer] Info Instructions
[2025-01-31] MEDS: RABIES VACCINE (RABAVERT) 2.5 UNIT IM (20:56)
[2025-01-31] MEDS: RABIES IMMUNE GLOBULIN 150 UNIT/ML INJ 1815 UNIT INFILTRATI (21:06)
[2025-01-31 21:12] VITALS: BP 125/78; PULSE 85; RESP 20; TEMP 36.8; O2SAT 99
== END 2025-01-31 21:12 | disposition home or self-care (01) ==
PROVIDERS: Emergency Provider Emergency Medicine Emergency Medical Services
DX: S61.432A Puncture wound without foreign body of left hand, initial encounter (principal); W54.0XXA Bitten by dog, initial encounter
CPT/HCPCS: 90377; 96372; 99283; 99284; 90675

== ENCOUNTER 2025-02-01 13:11 | Emergency (ER) | payer SELFPAY ==
--- OUTSIDE RECORDS SUMMARY | 2025-02-01 13:14 | XMS_ITS | Clinical Summary ---
Author Organization [facility] Address [address] [place] [id number] Care Team Providers Care [employer] Name Role Phone Thuy Franklin DO Primary Care Provider [phone] Allergies Active Allergy Reactions Criticality Noted Date Comments Sulfa (Sulfonamide Antibiotics) Rash 04/10 Medications acetaminophen (TYLENOL EXTRA STRGTH) 500 mg tabletIndications :Muscle pain, lumbar,Chronic left shoulder pain Take 1,000 mg by mouth every 6 hours if needed. Max acetaminophen dose: 4000mg in 24 hrs. 0 03/20/19 21 Active gabapentin (NEURONTIN) 300 mg capsuleIndication s:Herniated nucleus pulposus, L5-S1,Ulnar neuropathy of left upper extremity,Degener ation of intervertebral disc of lumbar region, unspecified whether pain present TAKE 1 CAPSULE(300 MG) BY MOUTH THREE TIMES DAILY 90 Capsule 11/18/19 25 Active Additional Information Patient not taking.Reported on 01/12/2025 hydrOXYzine HCL (ATARAX) 25 mg tabletIndications :Palpitations TAKE 1 TABLET(25 MG) BY MOUTH EVERY 6 HOURS NEEDED FOR ANXIETY 25 Tablet 01/03/20 25 Active amitriptyline 25 mg tabletIndications :Insomnia, idiopathic Take 1 Tablet (25 mg) by mouth at bedtime if needed for Sleep. 90 Tablet 01/06/20 25 Active ketoconazole 2 % creamIndications: Seborrheic dermatitis Apply topically to affected area(s) two times daily. 60 g 2 01/13/20 25 Active amitriptyline 25 mg tabletIndications :Insomnia, idiopathic TAKE 1 TABLET(25 MG) BY MOUTH AT BEDTIME NEEDED FOR SLEEP 30 Tablet 12/16/19 25 025 Discontin ued(Reord er (E-cancel not sent)) Active Problems Problem Noted Date Diagnosed Date Subacromial impingement of right shoulder 2023 Subacromial bursitis of right shoulder joint Degenerative disc disease, lumbar 02/07/2022 Overview (02/14/2022): S/p lumbar interbody fusion L5-S1 with Dr. Tapia at [facility] (02/2022) Hemorrhoids, internal 04/18/2021 Overview (04/18/2021): 7 o'clock position. Controlled substance agreement signed 01/12/2020 Overview (01/12/2020): Reviewed and resigned at [facility] 01/12/2020 Ulnar neuropathy of left upper extremity 019 Herniated nucleus pulposus, L5-S1 02/22/2018 Overview (02/14/2022): S/p lumbar interbody fusion L5-S1 with Dr. Tapia at [facility] (02/2022) Sacroiliac joint pain 01/14/2018 Nonintractable migraine 05/06/2017 Muscle pain, lumbar 02/09/2017 Overview (05/06/2017): Trial completed (from [facility]): cyclobenzaprine, meloxicam, Weiner, methocarbamol, oxaprozin, tarmadol, Seen by Pain clinic in [place] before (no GERBER obtained yet). Mention of previous back steroid injections in records from [facility]. - Seen by Red Campos MD ([facility]; 01/22/2016): Summary of MRI report of lumbar spine dated 11/07/15 shows at L5-S1, a 3-4 mm posterior central disc protrusion, possibly extrusion with mild indentation along the ventral aspect of the thecal sac and to a lesser extent upon the S1 nerve root. At that time, a L5-S1 lumbar epidural steroid injection was recommended. - Seen by Gume Funez MD ([facility], [facility]; 12/06/2015): Recommended to continue with nonoperative treatment and pain management. 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 07/2015 Cold knife cone biopsy Colposcopy in 2017. 05/2016 She had the hysterectomy May 2016 in [place] for cervical cancer, recalls CIN3. 06/2017 NIL/HPV [...] obstruction 03/30/2018 09/13/2018 Overview (03/30/2018): Noted 02/19/18 ([facility]). Many small stones that fill the gallbladder noted. Helicobacter positive gastritis 03/17/2018 05/10/2018 Overview (03/17/2018): 03-08-18 EGD. [facility]. Treated the H pylori. Celiac labs ordered for follow up. Costochondritis 06/02/2017 03/30/2018 Sacroiliac joint pain 02/09/20172017 Encounters Date Type Department Care Team Description 01/12/2025 4:10 PM SAFETY MANAGER Office Visit [facility] [address] [place] [address] Giuseppe Elizondo MD Derm Problem (FOREHEAD IS ITCHY AND RED); Headache (X 1 WEEK) 01/11/2025 Travel 01/09/2025 Telephone [facility] [place] [address] [address] [phone] Babak Mendoza MD Letter For Work (Needs start date ) 01/05/2025 9:30 AM CDT Orders Only [facility] [place] [facility] [address] Lab, [place] Lab 01/05/2025 Refill [facility] [place] [facility] [place] [address] Thuy Franklin DO Refill Request 01/04/2025 Travel 12/30/2024 Refill [facility] [place] [facility] [place] [address] Thuy Franklin DO Refill Request (Hydroxyzine Hcl) 12/22/2024 Telephone [facility] [address] [facility] [address] Thuy Franklin DO Results 12/19/2024 1:00 PM CDT Ancillary Procedure [facility] [place] [facility] [place] [address] 12/19/2024 Travel 12/14/2024 11:00 AM CDT Office Visit [facility] [address] [facility] [address] Thuy Franklin DO Dizziness (x6 days - feels like she has noticed some lightheadedness - feels like she had some low blood sugar/needed to eat but still feels like that it doesn't change now even if she sleeps - has been falling asleep about 12/17 - wakes up around 6am, wakes up a lot throughout the night ) 12/14/2024 Refill [facility] [place] [facility] [place] [address] Thuy Franklin DO Refill Request (Amitriptyline) 12/14/2024 Travel 12/12/2024 Travel 12/08/2024 8:10 AM CDT Procedure Only [facility] [address] [facility] [place] [address] Que Reyes MD Procedure (USGI trigger point injection ri... 12/08/2024 Travel 12/05/2024 Travel 11/25/2024 1:30 PM CDT Office Visit [facility] [address] [place] [address] Babak Mendoza MD Surgical Followup (S/P right shoulder scope) 11/24/2024 Travel 11/14/2024 Refill [facility] [address] [place] [address] Thuy Franklin, Refill Request (Gabapentin) from Last [...] on file Legal Sex Female 8:36 AM SAFETY MANAGER Gender Identity Not on file Sexual Orientation Not on file Obstetrics History Last Filed Vital Signs Vital Sign Reading Time Taken Comments Blood Pressure 113/71 01/12/2025 4:11 PM SAFETY MANAGER Pulse 87 01/12/2025 4:11 PM SAFETY MANAGER Temperature 36.8 C (98.3 F) 12/08/2024 8:08 AM CDT Respiratory Rate 20 02/10/2022 7:50 AM SAFETY MANAGER Oxygen Saturation 98% 01/12/2025 4:11 PM SAFETY MANAGER Inhaled Oxygen Concentration - - Weight 100.7 kg (221 lb 14.4 oz) 01/12/2025 4:11 PM SAFETY MANAGER Height 157.5 cm (5' 2) 01/12/2025 4:11 PM SAFETY MANAGER Body Mass Index 40.59 01/12/2025 4:11 PM SAFETY MANAGER Plan of Treatment Health Maintenance Due Date Last Done Comments Hepatitis B series for 19+ ( 1 of 3 - 19+ 3-dose series) 2003 Pneumococcal series for age 6-49 (1 of 2 - PCV) 2003 HPV series for age 9-45 (1 - 3-dose SCDM series) 2011 COVID-19 vaccine series ( season) 2024 Influenza Vaccine (#1) 2024 , 03/29/2018, 02/05/2017 [...] Completed 10/10/2021 Medical Devices Implanted Type Area Buffet Waiter/Waitress Device Identifier Shelf Expiration Date Model / Serial / Lot Set Screw Lmbr Ant 5.5mm Solera Break Off - [id number] Implanted:Qty: 4 on 02/07/2022 by Hal Tapia MD at [facility] N/A: Spine Medtronic Spine/Ortho [id number] / / Benjamín Lmbr 45x5.5mm Solera 5.5/6 Cvd Titnm - [id number] Implanted:Qty: 2 on 02/07/2022 by Hal Tapia MD at [facility] N/A: Spine Medtronic Spine/Ortho [id number] / / Screw Lmbr Post 6.5x40mm Solera 5.5/6 Va Cocr - [id number] Implanted:Qty: 2 on 02/07/2022 by Hal Tapia MD at [facility] N/A: Spine Medtronic Spine/Ortho [id number] / / Screw Lmbr Post 6.5x45mm Solera 5.5/6 Va Cocr - [id number] Implanted:Qty: 2 on 02/07/2022 by Hal Tapia MD at [facility] N/A: Spine Medtronic Spine/Ortho [id number] / / Screw Lmbr 5.5x25mm Endo Skeleton Tas Bone Alif Stand Alone - [id number] Implanted:Qty: 3 on 02/07/2022 by Hal Tapia MD at [facility] N/A: Spine Medtronic Spine/Ortho [id number] / / Jeremiah Spacer Tas 7dg Std 12mm Implanted:Qty: 1 on 02/07/2022 by Hal Tapia MD at [facility] N/A: Spine 01/14/2026 [id number] / / [id number] Description:JEREMIAH SPACER TAS 7DG STD 12MM [id number] one Matrix 6cc [place] Dbf Putty Dbm Implanted:Qty: 1 on 02/07/2022 by Hal Tapia MD at [facility] Explanted:at [facility] (Quantity not on file) N/A: Spine Medtronic Spine/Ortho 12/31/2023 [id number] / [id number] / Bone 1-4mm 30cc Medtronic Chips Canclls Freeze Dried - [id number] Implanted:Qty: 1 on 02/07/2022 by Hal Tapia MD at [facility] Explanted:at [facility] (Quantity not on file) N/A: Spine Medtronic Spine/Ortho 12/17/2025 [id number] / [id number] / Bone 1-4mm 30cc Medtronic Chips Canclls Freeze Dried - [id number] Implanted:Qty: 1 on 02/07/2022 by Hal Tapia MD at [facility] Explanted:at [facility] (Quantity not on file) N/A: Spine Medtronic Spine/Ortho 12/16/2025 [id number] / [id number] / Procedures Procedure Name Priority Date/Time Associated [...] CDT Trapezius muscle strain, right, subsequent encounter OIL PAINT SHADER THIN PREP PAP SCREEN IMAGED Routine 05/13/2023 8:50 AM SAFETY MANAGER Screening for cervical cancer ANTI HIV 1/2 [...] Franklin DO CHEMISTRY Final Result [facility] [address] [address], * ECHO TTE COMPLETE WO CONTRAST (12/19/2024 [...] Tech: ZOHREH Referring MD: THUY FRANKLIN Site: [facility] Reading Location: Mobile-OP Patient Location: Outpatient. Procedure: [...] . This study was interpreted by an [facility] accredited facility. Final Procedure Note Anny Jacobs, [facility] - 12/19/2024 ECHOCARDIOGRAM JESSIE VALERO : 1985 39 years Study Date: 12/19/2024 1:03:44 PM Gender: F BP: 113/65 mmHg Height: 155.00 cm BSA: 1.97 m Weight: 100.00 kg Tech: ZOHREH Referring MD: THUY FRANKLIN Site: [facility] Reading Location: Mobile-OP Patient Location: Outpatient. Procedure: [...] . This study was interpreted by an [facility] accredited facility. Final Thuy Franklin DO ECHO ORD Final Result * SEDIMENTATION RATE (12/14/2024 11:39 AM CDT) Pathologist [facility] SED RATE BY MODIFIED RHONDAREN 9 < OR = 20 mm/h 12/15/2024 4:00 AM CDT [facility] Blood BLOOD SPECIMEN / Unknown [facility] / Unknown 12/14/2024 11:39 AM CDT 12/14/2024 11:36 AM CDT us Adei Noemi DO HEMATOLOGY Final Result [facility] [address] [address], * CBC WITH AUTO DIFFERENTIAL (12/14/2024 11:39 AM CDT) Pathologist [facility] WHITE BLOOD CELL COUNT 8.5 3.8 - [...] CDT Thuy Franklin DO HEMATOLOGY Final Result Performing Organization Address [facility] de Phone Number [facility] [address] [address], * (ABNORMAL) TSH WITH REFLEX (12/14/2024 11:39 AM CDT) TSH W/REFLEX TO FT4 0.39(L) mIU/L 12/15/2024 10:07 AM CDT [facility] Comment: Reference Range > or = 20 Years 0.40-4.50 Ranges First trimester 0.26-2.66 Second trimester 0.55-2.73 Third trimester 0.43-2.91 Blood BLOOD SPECIMEN / Unknown [facility] / Unknown 12/14/2024 11:39 AM CDT 12/14/2024 11:36 AM CDT Thuy Martinezleon CHEMISTRY Final Result Performing Organization Address [facility] Co de Phone Number [facility] [address] [address], * (ABNORMAL) C-REACTIVE PROTEIN (12/14/2024 11:39 AM CDT) [facility] C-REACTIVE PROTEIN (MG/L) 8.3(H) <8.0 mg/L 12/15/2024 11:29 AM CDT [facility] Blood BLOOD SPECIMEN / Unknown [facility] / Unknown 12/14/2024 11:39 AM CDT 12/14/2024 11:36 AM CDT Thuy Franklin DO CHEMISTRY Final Result Performing Organization Address [facility] Co de Phone Number [facility] [address] [address], * T4,FREE (12/14/2024 11:39 AM CDT) Pathologist [facility] T4, FREE 1.3 0.8 - 1.8 ng/dL 12/15/2024 10:07 AM CDT [facility] Blood BLOOD SPECIMEN / Unknown [facility] / Unknown 12/14/2024 11:39 AM CDT 12/14/2024 11:36 AM CDT Thuy Franklin DO CHEMISTRY Final Result Performing Organization Address City/[facility]/ZIP Co de Phone Number [facility] [address] [address], [place] [phone] * FERRITIN (12/14/2024 11:39 AM CDT) Pathologist [facility] FERRITIN 129 16 - 154 ng/mL 12/15/2024 5:41 AM CDT [facility] Blood BLOOD SPECIMEN / Unknown [facility] / Unknown 12/14/2024 11:39 AM CDT 12/14/2024 11:36 AM CDT Thuy Franklin DO CHEMISTRY Final Result Performing Organization Address [facility] Co de Phone Number [facility] [address] [address], [place] [phone] * (ABNORMAL) COMP METABOLIC PANEL (12/14/2024 11:39 AM CDT) Pathologist [facility] SODIUM 139 135 - 146 mmol/L 12/15/2024 [...] AM CDT 12/14/2024 11:36 AM CDT us Adei Noemi DO CHEMISTRY Final Result [facility] [address] [place] [address], * BEDSIDE US STUDY ARCHIVE (12/08/2024 9:54 AM CDT) Narrative Orin Florez - 12/08/2024 9:54 AM CDT The patient [...] MD PROCEDURE ORD Final Resu lt * OIL PAINT SHADER THIN PREP PAP SCREEN IMAGED [[id number]] (05/13/2023 8:50 AM SAFETY MANAGER) Case Report Gynecologic Cytology Report Case: [id number] Authorizing Provider: Gale Chamberlain DO Collected: 05/13/2023 0850 Ordering Location: [facility] Received: 05/13/2023 0914 Clinic First Screen: Annalise Griggs Specimen: OIL PAINT SHADER ThinPrep Vial Screening, Cervical 05/19/2023 7:18 PM CDT [facility] INTERPRETATION /RESULT NEGATIVE FOR INTRAEPITHELIAL LESION OR MALIGNANCY (NIL) (none) 05/19/2023 7:18 PM CDT [facility] ENTRAL LABORATORY at 1918 CDT SPECIMEN ADEQUACY Satisfactory for evaluation 05/19/2023 7:18 PM CDT [facility] EN[facility] LAB[facility] HPV REQUEST HPV and PAP 05/19/2023 7:18 PM CDT [facility] [employer] [facility] ENTRAL LABORATORY Date of LMP n/a 05/19/2023 7:18 PM CDT [facility] Last Pap Date 10/10/21 05/19/2023 7:18 PM CDT [facility] Last Pap Result NIL 05/19/2023 7:18 PM CDT [facility] Abnormal Pap or Rew Bx in last 5 years No 05/19/2023 7:18 PM CDT [facility] Menstrual Status Hysterectomy-cervi x absent 05/19/2023 7:18 PM CDT [facility] Rew Bx Done Today No 05/19/2023 7:18 PM CDT [facility] [employer] [facility] ENTRAL LABORATORY Additional Information None given 05/19/2023 7:18 PM CDT [facility]OR[facility] Comment: Cytology is screened at [facility] - [address], [place] [address] and [facility] - [address], [place] [address] and [facility] - [address] [place] [address] Interpreted at [facility] - [address], [place] [address] Automated Review Failed 05/19/2023 7:18 PM CDT [facility] LABORATORY Comment:Processing failed, m anual screening required. ThinPrep Imaging System, [employer] ANCILLARY TESTING OIL PAINT SHADER HPV Ordered, Please see separate report 05/19/2023 7:18 PM CDT [facility] Note The pap test is a [...] and malignant lesions. 05/19/2023 7:18 PM CDT [facility] Other (Cervical) Non-Blood / Unknown 05/13/2023 8:50 AM SAFETY MANAGER 05/13/2023 9:14 AM SAFETY MANAGER us Gale Chamberlain DO PATHOLOGY/CYTOLOGY Final R esult [facility] [address] [place] [address], [place] * ANTI HCV (10/10/2021 12:29 PM CDT) HEPATITIS C ANTIBODY Non-React carolina Non-React carolina 10/12/2021 4:21 AM CDT [facility] TRAL LABORATORY Comment:Antibodies to HCV no t detected; does not exclude the possibility of exposure to HCV. Blood BLOOD SPECIMEN / Unknown Venipuncture / Unknown 10/10/2021 12:29 PM CDT 10/10/2021 12:29 PM CDT Zach Benitez MD SEND OUTS Final Result [facility] [address] [place] [address], * ANTI HIV 1/2 (10/10/2021 12:29 PM CDT) HIV-1/HIV-2 ANTIBODY Non-Reacti ve Non-Reacti ve 10/12/2021 4:19 AM CDT [facility] TRAL LABORATORY Comment:HIV-1 p24 and HIV-1/ HIV-2 Ab not detected. Blood BLOOD SPECIMEN / Unknown Venipuncture / Unknown 10/10/2021 12:29 PM CDT 10/10/2021 12:29 PM CDT Zach Benitez MD SEND OUTS Final Result Performing Organization Address City/[facility] Co de Phone Number [facility] [address] [place] [address], from Last 3 Months or Most Recently Relevant to Health Maintenance Additional Health Concerns Infection Onset Date Last Indicated MRSA Clearance Comment:Infection Control Note: Hx of MRSA, surveillance criteria met, no need for further testing or isolation precautions. Do not delete or resolve the infection flag. 06/07/2018 06/07/2018 Insurance [employer] Advance Directives * Full Code (Latest Code Status on File) Date Activated Date Inactivated Comments 02/07/2022 8:47 PM 02/10/2022 1:46 PM Question Answer Comments Code Status Discussion: Reviewed Preferences * Full Code Date Activated Date Inactivated Comments 06/07/2018 6:05 AM 06/07/2018 1:19 PM Care Teams [employer] Relationship Specialty Start Date End Date Thuy Franklin DO [address] [facility] [address] PCP - General Family Practice 09/04/23
[2025-02-01 13:22] VITALS: BP 153/87; PULSE 91; RESP 18; TEMP 36.4; O2SAT 98
--- NOTE | 2025-02-01 13:46 | ED.GENADULT ---
HPI - General Adult General Chief complaint: Extremity Pain/Injury, Upper Stated complaint: Dog bite yesterday, L hand swelling Time Seen by Provider: 02/01/25 13:31 History of Present Illness HPI narrative: Patient is a 39-year-old female works at [employer] had a dog bite yesterday had initial rabies immunoglobulin and vaccine, started on Keflex and given Rocephin. Noted is more swelling in the hand today specially the fingers. She had bites from either her dog another dog that were fighting through a fence yesterday. Started rabies vaccine as well and has this scheduled. She had a lot of discomfort and had trouble working today at [employer]. Her fingers are more swollen her hand is uncomfortable and she is unable to really use her hand well. Related Data Home Medications ?Medication ?Instructions ?Recorded ?Confirmed gabapentin 300 mg capsule 300 mg PO 3XD 09/08/23 02/01/25 meloxicam 15 mg tablet 15 mg PO DAILY 09/08/23 02/01/25 tramadol 50 mg tablet mg PO 03/04/24 amitriptyline 10 mg tablet 10 mg PO QPM 03/21/24 02/01/25 Previous Rx's ?Medication ?Instructions ?Recorded ondansetron 4 mg disintegrating 4 mg PO Q6H #20 tabs 03/21/24 tablet amoxicillin 875 mg-potassium 1 tab PO BID #20 tabs 02/01/25 clavulanate 125 mg tablet Allergies Allergy/AdvReac Type Severity Reaction Status Date / Time Sulfa (Sulfonamide Allergy Severe Rash Verified 02/01/25 13:27 Antibiotics) Review of Systems Status of ROS: Reports: 6 or more systems reviewed and unremarkable except as noted in History and below [facility] History DDD (degenerative disc disease), lumbar ?M51.369 - Other intervertebral disc degeneration, lumbar region without mention of lumbar back pain or lower extremity pain (ICD-10) Controlled substance agreement signed ?Z79.899 - Other correction (current) drug therapy (ICD-10) Ulnar neuropathy of left upper extremity ?G56.22 - Lesion of ulnar nerve, left upper limb (ICD-10) Herniated nucleus pulposus Sacroiliac joint pain ?M53.3 - Sacrococcygeal disorders, not elsewhere classified (ICD-10) Nonintractable migraine ?G43.009 - Migraine without aura, not intractable, without status migrainosus (ICD-10) Depression ?F32.A - Depression, unspecified (ICD-10) DUNIA III (cervical intraepithelial neoplasia grade III) with severe dysplasia ?D06.9 - Carcinoma in situ of cervix, unspecified (ICD-10) Muscle pain, lumbar ?M79.18 - Myalgia, other site (ICD-10) Surgical History History of hysteroscopy ?Z98.890 - Other specified postprocedural states (ICD-10) History of lumbosacral spine surgery ?Z98.890 - Other specified postprocedural states (ICD-10) History of ovarian cystectomy ?Z98.890 - Other specified postprocedural states (ICD-10) ?Z87.42 - Personal history of other diseases of the female genital tract (ICD-10) History of laparoscopic cholecystectomy ?Z90.49 - Acquired absence of other specified parts of digestive tract (ICD-10) History of laparoscopic appendectomy ?Z90.49 - Acquired absence of other specified parts of digestive tract (ICD-10) History of colposcopy ?Z98.890 - Other specified postprocedural states (ICD-10) History of abdominal hysterectomy ?Z90.710 - Acquired absence of both cervix and uterus (ICD-10) Social History Smoking Status: Former smoker Second hand tobacco smoke exposure: No How often do you have a drink containing alcohol: never AUDIT-C Alcohol total score: 0 Non-prescribed substance use: denies use service: No Exam Narrative: Exam Narrative: Objective afebrile some soft tissue swelling noted around the left dorsum fingers and no obvious exudate, no marked redness. Some just generalized swelling with the screw tooth ramirez are across the top of her fingers primarily the index long and ring. She has limited motion secondary the swelling of the fingers. No proximal ascending lymphangitic spread of infection. Const: Vital Signs, click to edit/add: Vital Signs - 24 hr 02/01/25 13:22 Temperature 97.6 F Pulse Rate [Right Pulse Oximeter] 91 Respiratory Rate 18 Blood Pressure [Ri ght Upper Arm] 153/87 H Pulse Oximetry 98 Oxygen Delivery Me thod Room Air Course Vital Signs Vital signs: Initial Vital Signs Temperature 97.6 F 02/01/25 13:22 Temperature Source Temporal Artery Scan 02/01/25 13:22 Pulse Rate 91 02/01/25 13:22 Pulse Rhythm Regular 02/01/25 13:22 Pulse Strength 3+ Normal 02/01/25 13:22 Respiratory Rate 18 02/01/25 13:22 Blood Pressure 153/87 H 02/01/25 13:22 Blood Pressure Mean 109 H 02/01/25 13:22 Blood Pressure Position Sitting 02/01/25 13:22 Pulse Oximetry 98 02/01/25 13:22 Oxygen Delivery Method Room Air 02/01/25 13:22 Vital Signs Temperature 97.6 F 02/01/25 13:22 Pulse Rate 91 02/01/25 13:22 Respiratory Rate 18 02/01/25 13:22 Blood Pressure 153/87 H 02/01/25 13:22 Pulse Oximetry 98 02/01/25 13:22 Oxygen Delivery Method Room Air 02/01/25 13:22 Temperature 97.6 F 02/01/25 13:22 Pulse Rate 91 02/01/25 13:22 Respiratory Rate 18 02/01/25 13:22 Blood Pressure 153/87 H 02/01/25 13:22 Pulse Oximetry 98 02/01/25 13:22 Oxygen Delivery Method Room Air 02/01/25 13:22 Medications Administered Medications: Discontinued Medications Generic Name Dose Route Start Last Admin Trade Name Bryanq PRN Reason Stop Dose Admin Ceftriaxone Sodium 1 gm 02/01/25 13:42 02/01/25 14:12 Ceftriaxone 1 Gm Vial IM 02/01/25 13:43 1 gm ONCE ONE Administration Medical Decision Making [facility] Narrative Medical decision making narrative: 39-year-old female with dog bite treat with Rocephin and Keflex ominous stop the Keflex and give her Augmentin 875 b.i.d. times 10 days, will give her another injection of Rocephin today, will give her a wrist splint, off work for the next week, elevation recommend soaking in soapy water 3 times a day over the next 3-4 days. Needs recheck with primary care in the next 2-4 days. Return to ED sooner problems or concerns. Will check on her tetanus status again. She will continue her rabies vaccine schedule. Discharge Plan Discharge Clinical Impression: Dog bite Patient Disposition: Home w/ Parent or Adult Condition: Stable Additional Instructions: Due to left hand swelling, potential infection the hand, patient should be off work for the next 5-7 days. Recheck with primary care in the next 2-4 days. Stop the Keflex, start Augmentin 875 b.i.d. times 10 days. Soak the hand in soapy water 3 times a day, may cover with a bandage after bacitracin applied. Return sooner to ED if problems or concerns. Keep your follow-up rabies vaccination schedule intact. Activity Level: Light activity Activity Detail: Off work x7 days due to hand infection Discharge Diet: Regular Prescriptions: New amoxicillin-pot clavulanate 875-125 mg tablet 1 tab PO BID Qty: 20 0RF No Action gabapentin 300 mg capsule 300 mg PO 3XD meloxicam 15 mg tablet 15 mg PO DAILY tramadol 50 mg tablet PO amitriptyline 10 mg tablet 10 mg PO QPM ondansetron 4 mg tablet,disintegrating 4 mg PO Q6H Qty: 20 0RF Follow Up/Referrals: Provider,Not a Local [Primary Care Provider, Family Practice] Stand Alone Forms: Work/School Release, [facility] Info Instructions
[2025-02-01] MEDS: cefTRIAXone 1 GM VIAL IM (14:12)
== END 2025-02-01 14:25 | disposition home or self-care (01) ==
LOC: ED 14:05
PROVIDERS: Emergency Provider Family Medicine
DX: R22.32 Localized swelling, mass and lump, left upper limb (principal); W54.0XXA Bitten by dog, initial encounter
CPT/HCPCS: 96372; 99283; 99284; J0696

== ENCOUNTER 2025-02-06 16:16 | Outpatient (RCR) | payer BC, SELFPAY ==
--- NOTE | 2025-02-06 16:43 | ED.NURSE ---
Pt presented to ER today stating she had been unable to come to her first scheduled date (02/03) for her Day 3 rabies vaccine dose. Called to MD to get advice as to how to administer series now with edited schedule due to pt noncompliance. [facility] advised to treat this dose/day as Day 3 and adjust the schedule going forwards, Day 7 dose to be 12/5 and Day 14 dose to be 12/12. Pt advised of updated schedule and advised of importance of complying with vaccine schedule.
[2025-02-06 17:00] VITALS: BP 121/80; PULSE 89; RESP 20; TEMP 36.9; O2SAT 98
[2025-02-06] MEDS: RABIES VACCINE (RABAVERT) 2.5 UNIT IM (17:01)
== END 2025-02-06 17:06 | disposition home or self-care (01) ==
PROVIDERS: Visit Provider Family Medicine
DX: Z29.14 Encounter for prophylactic rabies immune globulin (principal); Z20.3 Contact with and (suspected) exposure to rabies; Z23 Encounter for immunization
CPT/HCPCS: 80307; 90471; 90675